=== PATIENT | female | born 1975 | race Caucasian/White ===

== ENCOUNTER 2019-06-10 12:36 | Emergency (ER) | payer OTHER, SELFPAY ==
[2019-06-10 12:55] VITALS: BP 121/70; PULSE 71; RESP 18; TEMP 36.7; O2SAT 99
--- NOTE | 2019-06-10 13:14 | ED.SKABFB ---
HPI - Skin/Abscess/Foreign Bdy General Chief complaint: Skin/Abscess/Foreign Body Stated complaint: pos staph infection/chin Time Seen by Provider: 06/10/19 13:14 Source: patient Mode of arrival: ambulatory Limitations: no limitations History of Present Illness HPI narrative: Cyn Maldonado is a 44 yo female with a PMH of bipolar disorder who comes to urgent care with rash and lesion on right chin, has been evolving for 1 week- reports low grade fever but afebrile here Related Data Home Medications Medication Instructions Recorded Confirmed lamotrigine 06/10/19 Allergies Allergy/AdvReac Type Severity Reaction Status Date / Time erythromycin base Allergy Mild Nausea and Verified 01/12/18 20:32 Vomiting Review of Systems Review of Systems: Narrative: CONSTITUTIONAL: Denies fever, chills, sweats. EYES: Denies visual changes, redness, discharge. ENT: Denies rhinorrhea, congestion, sore throat, otalgia. CARDIOVASCULAR: Denies chest pain, palpitations, edema. RESPIRATORY: Denies dyspnea, wheezing, cough GASTROINTESTINAL: Denies abdominal pain, nausea, vomiting, diarrhea. GENITOURINARY: Denies dysuria, hematuria, abnormal discharge SKIN: Denies rash or itching. Reddened area of infection and induration right chin NEUROLOGIC: Denies numbness, or focal weakness. PSYCHIATRIC: Denies anxiety or depression. [facility] Family History Family History Other No active medical problems Social History Social History Smoking packs per day: 1 Smoking cigarettes per day: 20.0 Smoking status: Current every day smoker Alcohol intake: current Comments At time of signature, I agree with nursing past medical, surgical, social and family history. There is no relevant family history pertinent to the presenting complaint. Exam Narrative: Exam Narrative: GENERAL: This is a well-nourished, well-developed patient, in no apparent distress. HEAD: normocephalic, atraumatic. EYES: Sclera clear/white. Vision is grossly intact. EARS: External ears normal, . Hearing grossly intact. NOSE: External nose normal with no obvious nasal discharge, nares without redness, no rhinorrhea. THROAT: Mucous membranes moist, denies lesions or pain in mouth NECK: Neck supple, non-tender CARDIOVASCULAR: Regular rate and rhythm without murmurs, gallops, or rubs. RESPIRATORY: Clear to auscultation. Breath sounds equal bilaterally. No wheezes, rales, or rhonchi. GASTROINTESTINAL: Abdomen soft, non-tender, SKIN: warm, intact with red indurated rash with yellow discharge on right chin- 3 cm wide NEURO: awake, alert, and oriented to person, place and time. EXTREMITIES: Normal range of motion. No edema. BACK: Nontender without deformity. Course Course Emergency Course: Started on Bactrim Work excuse through tomorrow Vital Signs Vital signs: Vital Signs Temperature 98.0 F 06/10/19 12:55 Pulse Rate 71 06/10/19 12:55 Respiratory Rate 18 06/10/19 12:55 Blood Pressure 121/70 06/10/19 12:55 Pulse Oximetry 99 06/10/19 12:55 Temperature 98.0 F 06/10/19 12:55 Pulse Rate 71 06/10/19 12:55 Respiratory Rate 18 06/10/19 12:55 Blood Pressure 121/70 06/10/19 12:55 Pulse Oximetry 99 06/10/19 12:55 MDM - Skin/Abscess/Foreign Bdy Differential Diagnosis Differential diagnosis: Likely abscess of skin or subcutaneous tissue, cellulitis, contact dermatitis and other Discharge Plan Discharge Clinical Impression: Cellulitis Qualifiers: Site of cellulitis: face Qualified Code(s): L03.211 - Cellulitis of face Patient Disposition: Home, Self-Care Condition: Stable Instructions: Antibiotic Form, Cellulitis (DC) Prescriptions: New cephalexin 500 mg capsule 500 mg PO Q8H Qty: 30 RF: 0 No Action lamotrigine 25 mg tablet RF: 0 Follow-up/Referrals: Moe Chawla MD [Primary
== END 2019-06-10 13:26 | disposition home or self-care (01) ==
PROVIDERS: Emergency Provider Nurse Practitioner; PCP Emergency Medicine
DX: L03.211 Cellulitis of face (principal); F17.210 Nicotine dependence, cigarettes, uncomplicated; F31.9 Bipolar disorder, unspecified
CPT/HCPCS: 99213; G0463

== ENCOUNTER 2020-12-07 20:16 | Emergency (ER) | payer BC, SELFPAY ==
--- NOTE | ~2020-12-07 | CT_ITS ---
EXAMINATION: CT abdomen pelvis w con DATE: 12/07/2020 21:50 INDICATION: Epigastric pain. TECHNIQUE: Computed tomography (CT) of the abdomen and pelvis was performed with 100 mL Omnipaque-350 intravenous contrast. Automated exposure control and iterative reconstruction technique were employe d. The dose-length product was 890.03 mGy-cm. COMPARISON: 09/23/2018 FINDINGS: Dense extravasated contrast is seen in the distal left upper arm. No evident contrast Visualized lower chest, abdomen or pelvis. Linear discoid atelectasis/scarring in the right middle lo be. Similar pattern of mosaic attenuation at the lung bases consistent with atelectasis and subsegmen antonio regions of air trapping related to small airway disease. Heart size is normal. No pericardial or pleural effusion. Right liver, decompressed gallbladder, pancreas, spleen, bilateral adrenal glands a nd left kidney are normal. Unchanged 1 mm nonobstructing stone at a lower pole calyx of the right kid markell. No ureteral stones or hydronephrosis. Bladder, anteverted uterus and bilateral adnexa are unrema rkable. Small round likely tubal ligation rings in the region of the left and right broad ligaments. Unchanged pattern of phleboliths in the pelvis. Bowels including the appendix are normal. Small fat-c ontaining umbilical hernia. No free intraperitoneal gas or fluid. No pathologically enlarged abdomina l or pelvic lymphadenopathy. Mild lower thoracic spondylosis. IMPRESSION: 1. No acute intra-abdominal/pelvic process. 2. 1 mm right ureteral stone. 3. Extravasation of injected contrast which is seen in the soft tissues of the left upper arm. Reviewed, dictated and finalized at location A.
[2020-12-07 20:18] VITALS: BP 107/55; PULSE 82; RESP 18; TEMP 36.4; O2SAT 100
[2020-12-07 20:36] LABS: Basophils Absolute Auto 0.1 K/mm3 (0.0-0.1); Basophils Percent Auto 0.5 % (0.2-1.2); Eosinophils Absolute Auto 0.1 K/mm3 (0-0.3); Eosinophils Percent Auto 1.5 % (0-4.4); Hematocrit 43.6 % (37.0-47.0); Hemoglobin 14.7 g/dL (12.0-15.0); Immature Granulocyte Absolute 0.02 K/mm3 (0.00-0.031); Immature Granulocyte Percent A 0.2 % (0-0.5); Lymphocytes Absolute Auto 4.23 K/mm3 (0.9-3.2); Mean Corpuscular HGB Conc 33.7 g/dl (32-36); Mean Corpuscular Hemoglobin 31.1 pg (26-34); Mean Corpuscular Volume 92.2 fl (80-100); Mean Platelet Volume 10.4 fl (7.4-10.4); Monocytes Absolute Auto 0.4 K/mm3 (0.1-0.6); Monocytes Percent Auto 4.2 % (2.6-8.5); Neutrophils Absolute Auto 4.4 K/mm3 (1.3-6.7); Neutrophils Percent Auto 47.6 % (45.5-73.1); Platelet Count Result 177 k/mm3 (150-375); Red Blood Count 4.73 M/mm3 (4.2-5.4); White Blood Count 9.2 K/mm3 (4.5-10.0)
[2020-12-07 20:46] LABS: Alanine Aminotransferase 25 U/L (4-35); Albumin Level 4.7 g/dL (3.5-5.1); Alkaline Phosphatase 60 U/L (38-126); Anion Gap 8 mmol/L (8-16); Aspartate Amino Transferase 39 U/L (14-36); Bilirubin,Total 0.4 mg/dL (0.2-1.3); Blood Urea Nitrogen 18 mg/dL (7-17); Calcium 10.3 mg/dL (8.4-10.2); Carbon Dioxide 29 mmol/L (22-30); Chloride 103 mmol/L (98-107); Estimated CRCL calculation 56 ml/min; Estimated Glomerular Filt Rate 49; Glucose 103 mg/dL (65-110); Lipase 118 U/L (23-300); Potassium 4.6 mmol/L (3.4-5.0); Sodium 140 mmol/L (137-145)
[2020-12-07 21:06] LABS: Add Urine Microscopic? YES; Appearance Urine Cloudy (Clear); Bilirubin Urine Negative (Negative); Blood Urine Negative (Negative); Color Urine Yellow (Yellow); Glucose Urine UA Negative (Negative); Ketones Urine Negative (Negative); Leukocyte Esterase Ur Negative LEU/UL (Negative); Mucus Urine Rare /lpf; Nitrate Urine Negative (Negative); Protein Urine Negative (Negative); Specific Grav Ur 1.024 (1.001-1.035); Squamous Epithelial Cell Urine Moderate /hpf (Few)
[2020-12-07] MEDS: MORPHINE SULFATE (*CRX) 4 MG/ML INJ IV PUSH (21:48)
[2020-12-07] MEDS: ONDANSETRON INJ 4 MG/2 ML VIAL IV PUSH (21:48)
[2020-12-07] MEDS: SODIUM CHLORIDE 0.9% IV 1,000 ML 999 ML IV CONT (21:48)
--- NOTE | 2020-12-07 22:42 | ED.GENADULT ---
HPI - General Adult General Chief complaint: Abdominal Pain Stated complaint: abd pain Time Seen by Provider: 12/07/20 21:03 History of Present Illness HPI narrative: Patient is a 45-year-old female who presents ER with epigastric abdominal pain. Began yesterday. Worsens with eating. Reports its bloating and uncomfortable. Is alleviated yesterday with vomiting. Patient reports one loose stool related to this. Pain did radiate to the left side. No urinary frequency urgency or dysuria. No known sick contacts. Has not had similar symptoms. Patient has been taking Tums with gas relief. This is not helped. Related Data Home Medications Medication Instructions Recorded Confirmed lamotrigine 06/10/19 Allergies Allergy/AdvReac Type Severity Reaction Status Date / Time erythromycin base Allergy Mild Nausea and Verified 12/07/20 20:24 Vomiting Review of Systems Review of Systems: All systems reviewed & are unremarkable except as noted in HPI and below Constitutional: Constitutional: Denies chills, Reports fatigue and Denies fever(s) ENT: Denies nasal congestion and Denies sore throat Cardiovascular: Cardiovascular: Denies chest pain, Denies rapid heart rate and Denies radiating jaw, neck or arm pain Respiratory: Respiratory: Denies cough and Denies dyspnea Gastrointestinal: Gastrointestinal: Reports abdominal pain, Reports bloating, Reports diarrhea, Reports nausea and Reports vomiting Genitourinary: Genitourinary: Denies nocturia and Denies dysuria PMFSH Past Medical History Medical History (Updated 12/07/20 @ 23:59 by Honorio Short MD) Bipolar 1 disorder Surgical History Surgical History (Updated 12/07/20 @ 22:49 by Honorio Short MD) History of tonsillectomy Family History Family History Other No active medical problems Social History Social History Smoking packs per day: 1 Smoking cigarettes per day: 20.0 Smoking status: Current every day smoker Alcohol intake: current Exam Narrative: GENERAL: Well-appearing, well-nourished, and in no acute distress. HEAD: Normocephalic, atraumatic. CHEST: Clear to auscultation. No respiratory distress. HEART: Regular rate and rhythm. Normal peripheral pulses. ABDOMEN: Soft, mild epigastric tenderness without guarding, nondistended. EXTREMITIES: Normal range of motion. No edema. SKIN: Warm, dry, no rash. NEURO: Alert and oriented x3. PSYCH: Normal mood and affect. Course Course Emergency Course: Feels well. Informed results. Patient may have gallstones that cannot be seen on CT. Recommend low-fat diet and follow-up with PCP for outpatient ultrasound. Patient verbalized understanding of treatment plan. Vital Signs Vital signs: Vital Signs Temperature 97.6 F 12/07/20 20:18 Pulse Rate 82 12/07/20 20:18 Respiratory Rate 18 12/07/20 20:18 Blood Pressure 107/55 L 12/07/20 20:18 Pulse Oximetry 100 12/07/20 20:18 Temperature 97.6 F 12/07/20 20:18 Pulse Rate 78 12/07/20 23:38 Respiratory Rate 18 12/07/20 23:38 Blood Pressure 101/59 L 12/07/20 23:48 Pulse Oximetry 98 12/07/20 23:38 Medical Decision Making Vital Signs Vital Signs: Vital Signs Temperature 97.6 F 12/07/20 20:18 Pulse Rate 82 12/07/20 20:18 Respiratory Rate 18 12/07/20 20:18 Blood Pressure 107/55 L 12/07/20 20:18 Pulse Oximetry 100 12/07/20 20:18 Temperature 97.6 F 12/07/20 20:18 Pulse Rate 78 12/07/20 23:38 Respiratory Rate 18 12/07/20 23:38 Blood Pressure 101/59 L 12/07/20 23:48 Pulse Oximetry 98 12/07/20 23:38 Lab Data Result diagrams: 12/07/20 20:29 12/07/20 20:29 Labs: Lab Results 12/07/20 12/07/20 12/07/20 Range/Units 20:29 20:29 20:53 WBC 9.2 (4.5-10.0) K/mm3 RBC 4.73 (4.2-5.4) M/mm3 Hgb 14.7 (12.0-15.0) g/dL Hc
--- NOTE | 2020-12-07 23:32 | PC.NURSE ---
Assumed care of pt at this time, report taken from Radha MARVIN. Upon entering room, pt sleeping on stretcher. Pt alert and upright on stretcher upon waking pt up. No request at this time. Pt denies pain. Pt updated on POC.
[2020-12-07 23:38] VITALS: BP 95/65; PULSE 78; RESP 18; O2SAT 98
[2020-12-07 23:48] VITALS: BP 101/59
== END 2020-12-08 00:22 | disposition home or self-care (01) ==
PROVIDERS: Emergency Medicine; Emergency Provider Emergency Medicine; PCP Family Medicine
DX: R10.13 Epigastric pain (principal); N20.0 Calculus of kidney
CPT/HCPCS: 36415; 74177; 80053; 81001; 81025; 83690; 85025; 87077; 87086; 87088; 96361; 96374; 96375; 99284; J2270; J2405; J7030; Q9967

== ENCOUNTER 2021-05-23 12:12 | Emergency (ER) | payer BC, SELFPAY ==
[2021-05-23 12:19] VITALS: BP 107/66; PULSE 89; RESP 16; TEMP 37.3; O2SAT 99
--- NOTE | 2021-05-23 12:32 | ED.URI ---
HPI - URI/Sore Throat General Chief Complaint: Upper Respiratory Infection Stated Complaint: fever/body aches/sob Time Seen by Provider: 05/23/21 12:32 Source: patient Mode of arrival: ambulatory Limitations: no limitations History of Present Illness HPI Narrative: 46 yo F presents with c/o fatigue, chills, bodyaches, headache, fever for 2 days. Did a home covid test and it was positive. Her work will not accept it and they want a test and note done at an . Pt denies CP, SOB. Not vaccinated. All systems reviewed and negative except as noted above. Related Data Home Medications Medication Instructions Recorded Confirmed No Home Medications 05/23/21 05/23/21 Allergies Allergy/AdvReac Type Severity Reaction Status Date / Time erythromycin base Allergy Mild Nausea and Verified 12/07/20 20:24 Vomiting Review of Systems Review of Systems: CONSTITUTIONAL: Reports fever, chills, or sweats. EYES: Denies visual changes, redness, or discharge. ENT: Denies rhinorrhea, congestion, sore throat, or otalgia. CARDIOVASCULAR: Denies chest pain, palpitations, or edema. RESPIRATORY: Denies cough or dyspnea. GASTROINTESTINAL: Denies abdominal pain, nausea, vomiting, or diarrhea. GENITOURINARY: Denies dysuria or hematuria. SKIN: Denies rash or itching. MUSCULOSKELETAL: Denies back pain, joint pain. Reports myalgia. NEUROLOGIC: Reports headache denies numbness, or weakness. PSYCHIATRIC: Denies anxiety or depression. All other systems reviewed are negative, except as documented in HPI. [facility] Past Medical History Medical History (Updated 05/23/21 @ 12:43 by Citlali Dominguez NP) Bipolar 1 disorder Surgical History Surgical History (Updated 12/07/20 @ 22:49 by Honorio Short MD) History of tonsillectomy Family History Family History Other No active medical problems Social History Social History Smoking packs per day: 1 Smoking cigarettes per day: 20.0 Smoking status: Current every day smoker Alcohol intake: current Comments At time of signature, agree with nursing past medical, surgical, social and family history. There is no relevant family history pertinent to the presenting complaint. Exam Narrative: GENERAL: This is a well-nourished, well-developed patient. Patient is ill-appearing but in no distress. HEAD: normocephalic, atraumatic. EYES: PERRL. Sclera clear/white. Vision is grossly intact. EARS: External ears normal, auditory canals clear and without drainage, TMs normal without perforation. Hearing grossly intact. NOSE: External nose normal with no obvious nasal discharge, nares without redness, no rhinorrhea. THROAT: Mucous membranes moist, posterior pharynx clear. NECK: Neck supple, non-tender without lymphadenopathy, masses or thyromegaly. CARDIOVASCULAR: Regular rate and rhythm without murmurs, gallops, or rubs. RESPIRATORY: Clear to auscultation. Breath sounds equal bilaterally. No wheezes, rales, or rhonchi. GASTROINTESTINAL: Abdomen soft, non-tender, nondistended. Bowel sounds are active. No hepato-splenomegaly, or palpable masses. No guarding. SKIN: warm, Dry, intact with no suspicious lesions or rash, good texture and turgor. NEURO: awake, alert, and oriented to person, place and time. There were no obvious focal neurologic abnormalities. EXTREMITIES: No joint tenderness, effusion, or edema noted. No calf tenderness. Negative Homans sign bilaterally. BACK: Nontender without deformity. No CVA tenderness. Course Course Level of Care: Express Care Visit Vital Signs Vital signs: Vital Signs Temperature 37.3 C 05/23/21 12:19 Pulse Rate 89 05/23/21 12:19 Respiratory Rate 16 05/23/21 12:19 Blood Pressure 107/66 05/23/21 12:19 Pulse Oximetry 99 05/23/21 12:19 Temperature 37.3 C 05/23/21 12:19 Pulse Rate 89 05/23/21 12:19 Respiratory Rate 16
== END 2021-05-23 12:50 | disposition home or self-care (01) ==
PROVIDERS: Emergency Provider Nurse Practitioner Family
DX: U07.1 COVID-19 (principal); F17.210 Nicotine dependence, cigarettes, uncomplicated
CPT/HCPCS: 87426; 99213; C9803; G0463

== ENCOUNTER 2021-09-12 14:48 | Emergency (ER) | payer BC, SELFPAY ==
[2021-09-12 14:59] VITALS: BP 113/76; PULSE 97; RESP 16; TEMP 37.4; O2SAT 100
--- NOTE | 2021-09-12 15:00 | ED.URI ---
HPI - URI/Sore Throat General Chief Complaint: Upper Respiratory Infection Stated Complaint: sore throat Time Seen by Provider: 09/12/21 15:00 Source: patient Mode of arrival: ambulatory Limitations: no limitations History of Present Illness HPI Narrative: 46 yo F presents with c/o sore throat, neck pain, bodyaches, fever for 2 days. Also reports painful lesion to chin. Denies congestion, cough. No N/v/d. Taking ibuprofen and tylenol with only a little relief of sore throat. All systems reviewed and negative except as noted above. Related Data Allergies Allergy/AdvReac Type Severity Reaction Status Date / Time erythromycin base Allergy Mild Nausea and Verified 09/12/21 14:53 Vomiting Review of Systems Review of Systems: CONSTITUTIONAL: Reports fever, chills and sweats. EYES: Denies visual changes, redness, or discharge. ENT: Denies rhinorrhea, congestion. Reports sore throat. Denies otalgia. CARDIOVASCULAR: Denies chest pain, palpitations, or edema. RESPIRATORY: Denies cough or dyspnea. GASTROINTESTINAL: Denies abdominal pain, nausea, vomiting, or diarrhea. GENITOURINARY: Denies dysuria or hematuria. SKIN: Denies rash or itching. MUSCULOSKELETAL: Denies back pain, joint pain, or myalgia. NEUROLOGIC: Reports headache. Denies numbness, or weakness. PSYCHIATRIC: Denies anxiety or depression. All other systems reviewed are negative, except as documented in HPI. [facility] Past Medical History Medical History (Updated 09/12/21 @ 15:35 by Citlali Dominguez NP) Bipolar 1 disorder Surgical History Surgical History (Updated 12/07/20 @ 22:49 by Honorio Short MD) History of tonsillectomy Family History Family History Other No active medical problems Social History Social History Smoking packs per day: 1 Smoking cigarettes per day: 20.0 Smoking status: Current every day smoker Alcohol intake: current Comments At time of signature, agree with nursing past medical, surgical, social and family history. There is no relevant family history pertinent to the presenting complaint. Exam Narrative: GENERAL: This is a well-nourished, well-developed patient, in no apparent distress. HEAD: normocephalic, atraumatic. EYES: PERRL. Sclera clear/white. Vision is grossly intact. EARS: External ears normal, auditory canals clear and without drainage, TMs normal without perforation. Hearing grossly intact. NOSE: External nose normal with no obvious nasal discharge, nares without redness, no rhinorrhea. THROAT: Mucous membranes moist, erythema and swelling to posterior pharynx. NECK: Neck supple, non-tender without lymphadenopathy, masses or thyromegaly. CARDIOVASCULAR: Regular rate and rhythm without murmurs, gallops, or rubs. RESPIRATORY: Clear to auscultation. Breath sounds equal bilaterally. No wheezes, rales, or rhonchi. SKIN: warm, Dry, intact with no suspicious rash, good texture and turgor. Erythematous lesion with swelling to chin with yellow crusting. NEURO: awake, alert, and oriented to person, place and time. There were no obvious focal neurologic abnormalities. EXTREMITIES: No joint tenderness, effusion, or edema noted. Course Course Level of Care: Express Care Visit Vital Signs Vital signs: Vital Signs Temperature 37.4 C 09/12/21 14:59 Pulse Rate 97 09/12/21 14:59 Respiratory Rate 16 09/12/21 14:59 Blood Pressure 113/76 09/12/21 14:59 Pulse Oximetry 100 09/12/21 14:59 Oxygen Delivery Room Air 09/12/21 14:59 Temperature 37.4 C 09/12/21 14:59 Pulse Rate 97 09/12/21 14:59 Respiratory Rate 16 09/12/21 14:59 Blood Pressure 113/76 09/12/21 14:59 Pulse Oximetry 100 09/12/21 14:59 Oxygen Delivery Room Air 09/12/21 14:59 Reviewed MDM - URI/Sore Throat MDM Narrative Medical decision making narrative: Patient is aware of diagnosis, understand
== END 2021-09-12 15:15 | disposition home or self-care (01) ==
PROVIDERS: Emergency Provider Nurse Practitioner Family
DX: J02.9 Acute pharyngitis, unspecified (principal); L01.00 Impetigo, unspecified; Z20.822 Contact with and (suspected) exposure to COVID-19; F17.210 Nicotine dependence, cigarettes, uncomplicated
CPT/HCPCS: 87081; 87426; 87804; 87880; 99213; C9803; G0463

== ENCOUNTER 2022-03-16 09:48 | Emergency (ER) | payer BC, SELFPAY ==
[2022-03-16 10:30] VITALS: BP 111/75; PULSE 89; RESP 12; TEMP 37.2; O2SAT 98
--- NOTE | 2022-03-16 11:43 | ED.GENADULT ---
HPI - General Adult General Chief complaint: Upper Respiratory Infection Stated complaint: cough/ear pain/ sore throat Time Seen by Provider: 03/16/22 11:43 Source: patient Mode of arrival: ambulatory Limitations: no limitations History of Present Illness HPI narrative: 46-year-old female patient presents to the [facility] with complaints of cold symptoms for the past 2 days. Patient states she has had runny nose, congestion, watery and itchy eyes, bilateral ear pain, sore throat, cough, chills. Patient states she has also had a rash that came up yesterday on her chin that she wanted to get checked out. Patient states the rash is painful and slightly itchy. Related Data Allergies Allergy/AdvReac Type Severity Reaction Status Date / Time erythromycin base Allergy Mild Nausea and Verified 03/16/22 10:38 Vomiting Review of Systems Review of Systems: CONSTITUTIONAL: Denies fever, positive chills, denies sweats. EYES: Denies visual changes, redness, or discharge. Positive bilateral watery itchy eyes ENT: Positive rhinorrhea, congestion, sore throat, and bilateral otalgia. CARDIOVASCULAR: Denies chest pain, palpitations, or edema. RESPIRATORY: Positive cough denies dyspnea. GASTROINTESTINAL: Denies abdominal pain, nausea, vomiting, or diarrhea. GENITOURINARY: Denies dysuria or hematuria. SKIN: Positive rash with pain in itching to Thatch. MUSCULOSKELETAL: Denies back pain, joint pain, or myalgia. NEUROLOGIC: Denies headache, numbness, or weakness. PSYCHIATRIC: Denies anxiety or depression. [facility] Past Medical History Medical History Ankle fracture Bipolar 1 disorder Bronchitis Clavicle fracture Degenerative disc disease Surgical History Surgical History H/O tubal ligation History of tonsillectomy Family History Family History Other No active medical problems Social History Social History Smoking packs per day: 1 Smoking cigarettes per day: 20.0 Smoking status: Current every day smoker Alcohol intake: current Comments At the time of my signature I agree with nursing past medical history, surgical, social, and family history. There is no relevant family history pertinent to the presenting complaint. Exam Narrative: GENERAL: Well-appearing, well-nourished, and in no acute distress. HEAD: Normocephalic, atraumatic. EYES: PERRLA and EOMI. ENT: Nares with erythema edema noted bilaterally, no rhinorrhea or epistaxis. Mucous membranes moist. Posterior pharynx with no erythema, tonsillar enlargement, exudates or lesions present. Bilateral TMs are clear no erythema or foreign bodies the canal. NECK: Supple. No lymphadenopathy CHEST: Clear to auscultation. No respiratory distress. HEART: Regular rate and rhythm. No murmur heard. Normal peripheral pulses. ABDOMEN: Soft, nontender, nondistended, normal active bowel sounds. EXTREMITIES: Normal range of motion. No edema. SKIN: Warm, dry, patient has a blistery rash noted to the right side of the Thatch under the lower lip. There are about 3 areas biggest 1 measuring about 0.25 cm. NEURO: No focal deficits. Alert and oriented x3. Course Course Level of Care: Express Care Visit Reevaluation(s) Reevaluation #1: Re-evaluated patient and notified her that she is negative for COVID and influenza today. Discussed with patient that she does have some kind of virus we just do not know which 1 it is. Discussed with patient to treat her symptoms symptomatically. Discussed with the patient that we can go ahead and give her some Flonase and an antihistamine to help with the ear pain and help drain for any fluid away that might be in there. Discussed with patient we will give her the antiviral for the shingles outbreak on the chin. Otherwise she needs lo
== END 2022-03-16 12:38 | disposition home or self-care (01) ==
PROVIDERS: Emergency Provider Nurse Practitioner Family; PCP Family Medicine
DX: B02.9 Zoster without complications (principal); J06.9 Acute upper respiratory infection, unspecified; Z20.822 Contact with and (suspected) exposure to COVID-19; F17.210 Nicotine dependence, cigarettes, uncomplicated
CPT/HCPCS: 87426; 87804; 99213; C9803; G0463

== ENCOUNTER 2022-05-16 17:41 | Emergency (ER) | payer BC, SELFPAY ==
[2022-05-16 17:47] VITALS: BP 108/67; PULSE 84; RESP 16; TEMP 36.6; O2SAT 100
--- NOTE | 2022-05-16 18:27 | ED.URI ---
HPI - URI/Sore Throat General Chief Complaint: Upper Respiratory Infection Stated Complaint: sore throat Time Seen by Provider: 05/16/22 18:25 Source: patient Mode of arrival: ambulatory Limitations: no limitations History of Present Illness HPI Narrative: patient is a 46-year-old female presenting throat burning for 1 week. patient also reports bad breath and concern for oral thrush. Patient smokes half pack a day Related Data Allergies Allergy/AdvReac Type Severity Reaction Status Date / Time erythromycin base Allergy Mild Nausea and Verified 05/16/22 18:13 Vomiting Review of Systems Review of Systems: CONSTITUTIONAL: Denies malaise, chills, sweats, or fever.? EYES: Denies visual changes, redness, or discharge.? ENT: denies rhinorrhea, congestion, sinus pain, otalgia and reports burning sore throat.? CARDIOVASCULAR: Denies chest pain, palpitations, or edema.? RESPIRATORY: denies cough.? Denies dyspnea.? GASTROINTESTINAL: Denies abdominal pain, nausea, vomiting, diarrhea? SKIN: Denies rash or itching.? MUSCULOSKELETAL: Denies myalgia.? NEUROLOGIC: Denies headache All systems reviewed & are unremarkable except as noted in HPI and below PMFSH Past Medical History Medical History Ankle fracture Bipolar 1 disorder Bronchitis Clavicle fracture Degenerative disc disease Surgical History Surgical History H/O tubal ligation History of tonsillectomy Family History Family History Other No active medical problems Social History Social History Smoking packs per day: 1 Smoking cigarettes per day: 20.0 Smoking status: Current every day smoker Alcohol intake: current Comments At time of signature, agree with nursing past medical, surgical, social and family history. There is no relevant family history pertinent to the presenting complaint? Exam Narrative: GENERAL: Well-appearing, well-nourished, and in no acute distress.? HEAD: Normocephalic, atraumatic.? EYES: PERRLA, conjunctivae clear, and EOMI. No nystagmus.? ENT: Nares clear, turbinates pink, no rhinorrhea or epistaxis. Mucous membranes moist. TM pearly bustillo with sharp light reflex bilaterally; no tragal tenderness. Oropharynx without erythema or lesions. Tonsils not enlarged and without exudate.? inflamed cervical circumvalate papille without erythema NECK: Supple. No lymphadenopathy. CHEST: No respiratory distress. Clear to auscultation.? No bony deformities, no asymmetry. Speaks in full sentences.? HEART: Regular rate and rhythm. No murmur heard. ? ABDOMEN: Soft, nontender, nondistended EXTREMITIES: Normal range of motion. No edema. ? SKIN: Warm, dry, no rash.? NEURO: Alert and oriented x3. No focal deficits. PSYCH: Normal mood and affect? Course Course Emergency Course: Patient is aware of diagnosis, understands and agrees to treatment plan.? Anticipatory guidance given.? Patient agrees to follow-up as directed and is aware of reasons to seek care at the emergency department.? Portions of this record may have been created with voice recognition software? Level of Care: Express Care Visit Vital Signs Vital signs: Vital Signs Temperature 36.6 C 05/16/22 17:47 Pulse Rate 84 05/16/22 17:47 Respiratory Rate 16 05/16/22 17:47 Blood Pressure 108/67 05/16/22 17:47 Pulse Oximetry 100 05/16/22 17:47 Oxygen Delivery Room Air 05/16/22 17:47 Temperature 36.6 C 05/16/22 17:47 Pulse Rate 84 05/16/22 17:47 Respiratory Rate 16 05/16/22 17:47 Blood Pressure 108/67 05/16/22 17:47 Pulse Oximetry 100 05/16/22 17:47 Oxygen Delivery Room Air 05/16/22 17:47 Reviewed MDM - URI/Sore Throat MDM Narrative Medical decision making narrative: Differential diagnosis considered: Hernandez virus, strep pha
== END 2022-05-16 18:57 | disposition home or self-care (01) ==
PROVIDERS: Emergency Provider Nurse Practitioner Family; PCP Family Medicine
DX: J02.9 Acute pharyngitis, unspecified (principal); F17.210 Nicotine dependence, cigarettes, uncomplicated
CPT/HCPCS: 87081; 87880; 99213; G0463

== ENCOUNTER 2022-05-26 09:24 | Emergency (ER) | payer BC, SELFPAY ==
--- NOTE | ~2022-05-26 | XR_ITS ---
EXAMINATION: XR chest 2V DATE: 05/26/2022 09:46 INDICATION: Difficulty breathing and nonproductive cough TECHNIQUE: PA and lateral views of the chest were obtained. COMPARISON: Chest radiograph dated 10/29/2006 FINDINGS: The lungs are clear with no focal airspace opacities, pulmonary edema, pleural effusion or pneumothor ax. The cardiomediastinal silhouette is normal. Visualized bones and soft tissues are unremarkable. IMPRESSION: 1. No acute cardiopulmonary disease. Reviewed, dictated and finalized at location A.
--- NOTE | 2022-05-26 09:26 | ED.URI ---
HPI - URI/Sore Throat General Chief Complaint: Upper Respiratory Infection Stated Complaint: uri Time Seen by Provider: 05/26/22 09:25 Source: patient Mode of arrival: ambulatory Limitations: no limitations History of Present Illness HPI Narrative: Cyn is a 47-year-old female patient presenting to the clinic today with complaints of headache, sore throat, ear discomfort, nasal congestion, intermittent shortness of breath, body aches, chills, and feeling feverish. She reports her cough is nonproductive. She is concerned that she may have COVID. She denies any known exposure to anyone with COVID, flu, or strep MD elicited complaint: fever, cough, sore throat, rhinorrhea, nasal congestion and other (Headache, ear pain) Related Data Allergies Allergy/AdvReac Type Severity Reaction Status Date / Time erythromycin base Allergy Mild Nausea and Verified 05/26/22 09:49 Vomiting Review of Systems Review of Systems: Pertinent positives per HPI. Patient denies any rash, visual changes, dizziness, chest pain, palpitations, nausea, vomiting, diarrhea, constipation, abdominal pain, or any urinary issues. PMFSH Past Medical History Medical History Ankle fracture Bipolar 1 disorder Bronchitis Clavicle fracture Degenerative disc disease Surgical History Surgical History H/O tubal ligation History of tonsillectomy Family History Family History Other No active medical problems Social History Social History Smoking packs per day: 1 Smoking cigarettes per day: 20.0 Smoking status: Current every day smoker Alcohol intake: current Comments At the time of my signature, I reviewed and agree with the nursing past medical, surgical, social, and family history. There is no relevant family history pertinent to the patient complaint. Exam Narrative: General: Well-developed, well nourished, in no apparent distress Head: Normocephalic, atraumatic Eyes: Pupils equally round and reactive to light bilaterally, EOM intact, sclera and conjunctive clear, no discharge, lids normal Ears: TMs intact and congested ear canals clear, no drainage, grossly hearing normal. Nose: Nares patent, clear nasal discharge, moderate inflammation, no sinus tenderness. Mouth: Oral pharynx without lesions or masses, good dentition, MMM. Postnasal drip, oropharynx red Neck: Supple, trachea midline, no enlargement of anterior or posterior cervical nodes, no thyroid masses or goiter palpable. Cardio: Regular rate and rhythm, s1 and s2 normal, no murmur appreciated. Resp: Faint crackles heard in the right lower posterior base otherwise clear, no rhonchi, rales, wheezing or rubs Course Course Emergency Course: Portions of this record may have been created with voice recognition software. Level of Care: Express Care Visit Vital Signs Vital signs: Vital Signs Temperature 37.7 C H 05/26/22 09:32 Pulse Rate 111 H 05/26/22 09:32 Respiratory Rate 16 05/26/22 09:32 Blood Pressure 99/67 L 05/26/22 09:32 Pulse Oximetry 95 05/26/22 09:32 Oxygen Delivery Room Air 05/26/22 09:32 Temperature 37.7 C H 05/26/22 09:32 Pulse Rate 111 H 05/26/22 09:32 Respiratory Rate 16 05/26/22 09:32 Blood Pressure 99/67 L 05/26/22 09:32 Pulse Oximetry 95 05/26/22 09:32 Oxygen Delivery Room Air 05/26/22 09:32 Vital signs reviewed MDM - URI/Sore Throat MDM Narrative Medical decision making narrative: At the time of visit patient is resting comfortably on the exam table. COVID, flu, and strep test were all negative in the clinic today. We will send strep for culture. Chest x-ray was performed and was negative for any sign of pneumonia. I suspect patient has URI/pharyngitis/viral syn
[2022-05-26 09:32] VITALS: BP 99/67; PULSE 111; RESP 16; TEMP 37.7; O2SAT 95
== END 2022-05-26 10:22 | disposition home or self-care (01) ==
PROVIDERS: Emergency Provider Nurse Practitioner Family; PCP Family Medicine
DX: J02.8 Acute pharyngitis due to other specified organisms (principal); F17.210 Nicotine dependence, cigarettes, uncomplicated; Z20.822 Contact with and (suspected) exposure to COVID-19
CPT/HCPCS: 71046; 87081; 87426; 87804; 87880; 99213; C9803; G0463

== ENCOUNTER 2022-08-21 07:06 | Emergency (ER) | payer BC, SELFPAY ==
[2022-08-21 07:09] VITALS: BP 125/83; PULSE 87; RESP 16; O2SAT 100
[2022-08-21 07:43] LABS: Basophils Percent Auto 0.6 % (0.2-1.2); Eosinophils Absolute Auto 0.2 K/mm3 (0-0.3); Eosinophils Percent Auto 2.6 % (0-4.4); Hemoglobin 15.5 g/dL (12.0-15.0); Immature Granulocyte Absolute 0.02 K/mm3 (0.00-0.031); Immature Granulocyte Percent A 0.3 % (0-0.5); Lymphocytes Absolute Auto 3.03 K/mm3 (0.9-3.2); Lymphocytes Percent Auto 43.9 % (18.3-44.2); Mean Platelet Volume 12.1 fl (7.4-10.4); Monocytes Absolute Auto 0.4 K/mm3 (0.1-0.6); Monocytes Percent Auto 5.1 % (2.6-8.5); Neutrophils Absolute Auto 3.3 K/mm3 (1.3-6.7); Neutrophils Percent Auto 47.5 % (45.5-73.1); Platelet Count Result 174 k/mm3 (150-375); Red Cell Distribution Width 12.7 % (11.5-14.5); White Blood Count 6.9 K/mm3 (4.5-10.0)
[2022-08-21 07:56] LABS: Alanine Aminotransferase 17 U/L (6-35); Albumin Level 4.2 g/dL (3.5-5.1); Alkaline Phosphatase 40 U/L (38-126); Anion Gap 6 mmol/L (8-16); Aspartate Amino Transferase 21 U/L (14-36); Bilirubin,Total 0.6 mg/dL (0.2-1.3); Blood Urea Nitrogen 14 mg/dL (7-17); Calcium 8.9 mg/dL (8.4-10.2); Carbon Dioxide 25 mmol/L (22-30); Chloride 108 mmol/L (98-107); Estimated CRCL calculation 81 ml/min; Estimated Glomerular Filt Rate > 60; Glucose 98 mg/dL (65-110); Potassium 4.9 mmol/L (3.4-5.0); Sodium 139 mmol/L (137-145)
[2022-08-21 09:27] LABS: Monoscreen Negative (Negative); Negative Monotest Control Negative (Negative); Positive Monotest Control Positive (Positive)
--- NOTE | 2022-08-21 09:30 | ED.GENADULT ---
HPI - General Adult General Chief complaint: Unspecified Stated complaint: sore throat Time Seen by Provider: 08/21/22 07:13 Source: patient Mode of arrival: ambulatory Limitations: no limitations History of Present Illness HPI narrative: 47-year-old otherwise healthy here with complaints of sore throat on and off since the last few months. Patient states that she developed shingles on her face she was on medication for that however since last few months she gets intermittent pain in her throat from midway tongue to all the way to her throat.. Patient states that she was at work this morning all of a sudden she developed pain and felt lightheaded. She denies any chest pain or shortness of breath. No history of fever or chills. Onset (ago): week(s) Location: mouth Radiation: non-radiation Severity: mild Pain Consistency: intermittent Relieving factors: none Exacerbating factors: none Associated symptoms: denies other symptoms Related Data Allergies Allergy/AdvReac Type Severity Reaction Status Date / Time erythromycin base Allergy Mild Nausea and Verified 08/21/22 07:11 Vomiting Review of Systems Review of Systems: All systems reviewed & are unremarkable except as noted in HPI and below Constitutional: Constitutional: Reports no additional constitutional complaints Eyes: Eyes: Reports no additional eye complaints ENT: Reports system reviewed and no additional complaints, except as documented Cardiovascular: Cardiovascular: Reports no additional cardiovascular complaints Respiratory: Respiratory: Reports no additional respiratory complaints Gastrointestinal: Gastrointestinal: Reports no additional gastrointestinal complaints PMFSH Past Medical History Medical History Ankle fracture Bipolar 1 disorder Bronchitis Clavicle fracture Degenerative disc disease Surgical History Surgical History H/O tubal ligation History of tonsillectomy Family History Family History Other No active medical problems Social History Social History Smoking packs per day: 1 Smoking cigarettes per day: 20.0 Smoking status: Current every day smoker Alcohol intake: current Exam Narrative: GENERAL: Well-appearing, well-nourished, and in no acute distress. HEAD: Normocephalic, atraumatic. EYES: PERRLA and EOMI. ENT: Nares clear, no rhinorrhea or epistaxis. Mucous membranes moist. NECK: Supple. CHEST: Clear to auscultation. No respiratory distress. HEART: Regular rate and rhythm. No murmur heard. Normal peripheral pulses EXTREMITIES: Normal range of motion. No edema. SKIN: Warm, dry, no rash. NEURO: No focal deficits. Alert and oriented x3. PSYCH: Normal mood and affect. Course Course Emergency Course: Notified patient about her lab work. Recommended her to follow-up with the ENT. Cause of her pain is unknown at this time. Vital Signs Vital signs: Vital Signs Pulse Rate 87 08/21/22 07:09 Respiratory Rate 16 08/21/22 07:09 Blood Pressure 125/83 08/21/22 07:09 Pulse Oximetry 100 08/21/22 07:09 Pulse Rate 87 08/21/22 07:09 Respiratory Rate 16 08/21/22 07:09 Blood Pressure 125/83 08/21/22 07:09 Pulse Oximetry 100 08/21/22 07:09 Medical Decision Making [facility] Narrative Medical decision making narrative: 47-year-old with ongoing sore throat and lightheadedness and dizziness her physical exam is unremarkable we will do EKG, check labs. Differential Diagnosis Differential Diagnosis: Neuropathic pain, mononucleosis Medical Records Medical records reviewed: Yes I reviewed the external patient's medical records. Vital Signs Vital Signs: Vital Signs Pulse Rate 87 08/21/22 07:09 Respiratory Rate 16 08/21/22 07:09 Blood Pressure 125/83 06/07
--- NOTE | 2022-08-21 09:35 | ECG_ITS ---
Measurements Intervals [place] Rate: 61 P: 42 MD: 145 QRS: 174 QRSD: 101 T: 46 QT: 428 QTc: 433 Interpretive Statements SINUS RHYTHM WITH SINUS ARRHYTHMIA PATTERN CONSISTENT WITH PULMONARY DISEASE POSSIBLE RIGHT VENTRICULAR HYPERTROPHY [SOME/ALL OF: PROMINENT R IN V1, LATE TRANSITION, RAD, ZACH, SSS] ABNORMAL ECG NO PREVIOUS ECG AVAILABLE FOR COMPARISON Electronically Signed On 08-21-2022 10:21:51 CDT by Leonel Quiroga M.D.
[2022-08-21 09:51] VITALS: BP 126/80; PULSE 84; RESP 16; TEMP 36.8; O2SAT 100
== END 2022-08-21 09:52 | disposition home or self-care (01) ==
PROVIDERS: Emergency Provider Family Medicine; PCP Family Medicine
DX: R42 Dizziness and giddiness (principal); R07.0 Pain in throat; G89.29 Other chronic pain; F17.210 Nicotine dependence, cigarettes, uncomplicated; R94.31 Abnormal electrocardiogram [ECG] [EKG]
CPT/HCPCS: 36415; 80053; 85025; 86308; 93005; 99283

== ENCOUNTER 2022-11-02 13:38 | Inpatient (IN) | payer BC, SELFPAY ==
--- NOTE | ~2022-11-02 | MR_ITS ---
EXAMINATION: MR MRCP wo/w con/w 3D wo ind DATE: 11/03/2022 09:56 INDICATION: Right upper quadrant abdominal pain. Gallbladder distention. TECHNIQUE: Magnetic resonance imaging (MRI) of the abdomen was performed without and with 19 mL Multi Romel intravenous contrast. Sequences included coronal T2-weighted FS FSE, coronal T2-weighted FSE, a xial T1-weighted LAVA, coronal FS FIESTA, axial dual-echo T1-weighted SPGR, coronal lava-FLEX, sagitt al T2-weighted FSE, axial T2-weighted FSE, and axial DWI. Thick-slab T2-weighted FSE images were obta ined for magnetic resonance cholangiopancreatography (MRCP). Maximum intensity projection 3-D reconst ructions of the volumetric data were created by the technologist. Postcontrast sequences included cor onal LAVA-flex and time course of axial T1-weighted LAVA. COMPARISON: CT abdomen and pelvis 11/02/2022 FINDINGS: ABDOMEN MRI: There is mild intrahepatic biliary duct dilatation. There is a 5 mm cyst in the liver. T he gallbladder is distended and contains gallstones. Gallbladder wall thickening is noted. The spleen is normal. 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 The adrenal glands and left kidney are normal. Ther e are cysts in right kidney measuring up to 6 mm. There are no dilated loops of bowel. There are no p athologically enlarged lymph nodes. There is physiologic fluid in the pelvis. ABDOMEN MRCP: The common duct is dilated to 11 mm. There are multiple stones in the common duct measu ring up to 6 mm. IMPRESSION: 1. Choledocholithiasis with intrahepatic and extrahepatic biliary duct dilatation. 2. Acute cholecystitis. Reviewed, dictated and finalized at location A. IMPRESSION: 1. Choledocholithiasis with intrahepatic and extrahepatic biliary duct dilatati on. 2. Acute cholecystitis.
--- NOTE | ~2022-11-02 | XR_ITS ---
EXAMINATION: XR ERCP DATE: 11/05/2022 14:21 INDICATION: Choledocholithiasis TECHNIQUE: Two intraoperative fluoroscopic images obtained during endoscopic retrograde cholangiopanc reatography (ERCP) are submitted for review. Total fluoroscopic time was 91.1 seconds. COMPARISON: None. FINDINGS: Fluoroscopic images demonstrate opacification of a mildly dilated common bile duct. IMPRESSION: 1. Dilated common bile duct. Please refer to the ERCP procedure note for additional details. Reviewed, dictated and finalized at location A. IMPRESSION: 1. Dilated common bile duct. Please refer to the ERCP procedure note for additi onal details.
--- NOTE | ~2022-11-02 | CT_ITS ---
EXAMINATION: CT abdomen pelvis w con INDICATION: Epigastric pain TECHNIQUE: Computed tomographic images of the abdomen and pelvis were obtained after the administrati on of 100 cc of Omnipaque 350 intravenous contrast. The dose-length product (DLP) was 928.18 mGy-cm. Automated exposure control and iterative reconstruction technique were employed. COMPARISON: 12/07/2020 FINDINGS: The lung bases are clear. The heart size is normal. There is mild intrahepatic and extrahep atic biliary dilatation. The gallbladder is mildly distended. There appears to be debris or stones in the common bile duct. The liver, spleen, pancreas, and adrenal glands are normal. The left kidney is unremarkable. Cysts of the right kidney measure up to 8 mm. No pathologically enlarged abdominal or pelvic lymph nodes are identified. No free intraperitoneal gas or evidence of bowel obstruction. Ther e is an umbilical hernia containing fat. The appendix is normal. IMPRESSION: 1. Gallbladder distention with intrahepatic and extrahepatic biliary dilatation and apparent debris o r stones in the common bile duct. Consider correlation with MRCP. Reviewed, dictated and finalized at location F. IMPRESSION: 1. Gallbladder distention with intrahepatic and extrahepatic biliary dilatation and apparent debris or stones in the common bile duct. Consider correlation wi MRCP.
[2022-11-02 13:48] VITALS: BP 137/73; PULSE 93; RESP 18; TEMP 36.6; O2SAT 99
[2022-11-02 14:22] LABS: Basophils Percent Auto 0.5 % (0.2-1.2); Eosinophils Absolute Auto 0.2 K/mm3 (0-0.3); Eosinophils Percent Auto 2.2 % (0-4.4); Hematocrit 45.3 % (37.0-47.0); Hemoglobin 15.1 g/dL (12.0-15.0); Immature Granulocyte Absolute 0.04 K/mm3 (0.00-0.031); Immature Granulocyte Percent A 0.5 % (0-0.5); Lymphocytes Absolute Auto 3.34 K/mm3 (0.9-3.2); Lymphocytes Percent Auto 37.9 % (18.3-44.2); Mean Corpuscular HGB Conc 33.3 g/dl (32-36); Mean Corpuscular Hemoglobin 30.8 pg (26-34); Mean Corpuscular Volume 92.4 fl (80-100); Mean Platelet Volume 10.9 fl (7.4-10.4); Monocytes Absolute Auto 0.5 K/mm3 (0.1-0.6); Neutrophils Absolute Auto 4.7 K/mm3 (1.3-6.7); Neutrophils Percent Auto 52.9 % (45.5-73.1); Platelet Count Result 187 k/mm3 (150-375); Red Cell Distribution Width 12.5 % (11.5-14.5); White Blood Count 8.8 K/mm3 (4.5-10.0)
[2022-11-02 14:34] LABS: Alanine Aminotransferase 297 U/L (6-35); Albumin Level 4.4 g/dL (3.5-5.1); Alkaline Phosphatase 106 U/L (38-126); Anion Gap 8 mmol/L (8-16); Aspartate Amino Transferase 52 U/L (14-36); Bilirubin,Total 0.3 mg/dL (0.2-1.3); Blood Urea Nitrogen 15 mg/dL (7-17); Calcium 9.2 mg/dL (8.4-10.2); Carbon Dioxide 24 mmol/L (22-30); Chloride 108 mmol/L (98-107); Estimated CRCL calculation 81 ml/min; Estimated Glomerular Filt Rate > 60; Glucose 115 mg/dL (65-110); Lipase 112 U/L (23-300); Potassium 4.1 mmol/L (3.4-5.0); Sodium 140 mmol/L (137-145)
[2022-11-02 14:43] LABS: Appearance Urine Clear (Clear); Bilirubin Urine Negative (Negative); Blood Urine Negative (Negative); Color Urine Dark Yellow (Yellow); Glucose Urine UA Negative (Negative); Ketones Urine Trace mg/dL (Negative); Leukocyte Esterase Ur Negative LEU/UL (Negative); Nitrate Urine Negative (Negative); Protein Urine Negative (Negative); Specific Grav Ur 1.032 (1.001-1.035); pH Urine 6.5 (5.0-9.0)
[2022-11-02 14:49] LABS: Add Urine Microscopic? NO
--- NOTE | 2022-11-02 15:11 | ED.ABDPAIN ---
HPI - Abdominal Pain General Chief Complaint: Abdominal Pain Stated Complaint: abd pain Time Seen by Provider: 11/02/22 15:06 Source: patient and family Mode of arrival: ambulatory Limitations: no limitations History of Present Illness HPI narrative: 47 years old white female came to the emergency room by private car with her son complaining of intermittent epigastric pain for over a year. Was seen by her family physician 2 weeks ago and started on omeprazole and famotidine, without improvement, was seen by aircraft maintenance instructor yesterday and was asked to continue the antacid medication. Patient could not sleep last night, because of the pain. History of anxiety and depression. Denies any history of abdominal surgery. Related Data Home Medications Medication Instructions Recorded Confirmed buspirone 10 mg tablet 10 mg PO BID 08/30/22 08/30/22 methylprednisolone 4 mg tablet 4 mg PO DAILY 08/30/22 08/30/22 Allergies Allergy/AdvReac Type Severity Reaction Status Date / Time erythromycin base Allergy Mild Nausea and Verified 11/02/22 15:57 Vomiting Review of Systems Review of Systems: All systems reviewed & are unremarkable except as noted in HPI and below PMFSH Past Medical History Medical History Ankle fracture Bipolar 1 disorder Bronchitis Clavicle fracture Degenerative disc disease Surgical History Surgical History H/O tubal ligation History of tonsillectomy Family History Family History Father Alcoholism Diabetes mellitus Hypertension Depression Heart disease Mother Cancer Depression Other Asthma Depression Grandparent Alcoholism Cancer Diabetes mellitus Hypertension Heart disease Depression Grandparent Depression Other No active medical problems Social History Social History Smoking packs per day: 1 Smoking cigarettes per day: 20.0 Smoking status: Current every day smoker Alcohol intake: current Lack of Transportation: No Lack of Food: Never True Current Housing: I Have Housing Concerned About Future Housing: No Difficulty Paying Gas/Electric Bills: No Difficulty Paying for Meds: No Currently Unemployed: No Education: Trade/Vocational Certificate Difficulty w/ Childcare or Family Care: No Exam Narrative: General appearance: Well-developed, well-nourished, looks in pain Skin: Normal color Head: Normocephalic, nontraumatic Eyes: Clear conjunctiva ENT: Oropharynx normal, ears normal, nose normal Neck: Supple, nontender Chest and respiratory: Airway patent, no respiratory distress, no accessory muscle use Heart: Regular rate/rhythm Abdomen: Severe epigastric tenderness, she and right upper quadrant, positive guarding, quiet bowel sounds Vascular: Normal peripheral pulses, normal capillary refill. Musculoskeletal: Normal range of motion, nontender back Neurologic: Alert and oriented ?3, [employer]UCER is normal as tested, no gross motor deficit Course Reevaluation(s) Reevaluation #1: Still in pain, and requires more Dilaudid and Zofran IV. Date: 11/02/22 Time: 17:18 Consultations Consultation #1: Dr. Arriaza Date: 11/02/22 Time: 17:18 Consultation #2: Dr. Sanz Date: 11/02/22 Time: 17:18 Vital Signs Vital signs: Vital Signs Temperature 36.6 C 11/02/22 13:48 Pulse Rate 93 11/02/22 13:48 Respiratory Rate 18 11/02/22 13:48 Blood Pressure 137/73 11/02/22 13:48 Pulse Oximetry 99 11/02/22 13:48 Temperature 36.6 C 11/02/22
[2022-11-02] MEDS: SODIUM CHLORIDE 0.9% IV 1,000 ML 999 ML IV CONT ×2 (15:36→17:58)
[2022-11-02 15:58] VITALS: BP 124/62; PULSE 62; RESP 20; O2SAT 100
[2022-11-02] MEDS: ONDANSETRON INJ 4 MG/2 ML VIAL 8 MG IV PUSH (15:59)
[2022-11-02] MEDS: HYDROmorphone HCL INJ (*CRX) 1 MG/ML SYR 0.5 MG IV PUSH ×3 (15:59→19:36)
--- NOTE | 2022-11-02 19:00 | PC.NURSE ---
This patient, Cyn Maldonado, was admitted to Medical Room 341-01. Patient/family oriented to hospital policies and general routines including ID bracelet, bed and alarms, visiting hours, pain management, procedures, bathroom and other care routines, personal items, smoking policy, room service/diet, and visiting hours. Information on how to activate the Rapid Response Team has been discussed. Patient/Family are encouraged to report perceived risks to care and to ask questions if they do not understand what they are told or what they should do.
[2022-11-02 19:17] VITALS: BP 123/72; PULSE 83; RESP 18; TEMP 36.5; O2SAT 94
[2022-11-02 19:18] VITALS: BMI 62.8
[2022-11-02] MEDS: SODIUM CHLORIDE 0.9% IV 1,000 ML 150 ML IV CONT (19:33)
[2022-11-02] MEDS: ONDANSETRON INJ 4 MG/2 ML VIAL IV PUSH ×2 (19:36→23:47)
[2022-11-02 20:00] VITALS: O2SAT 94
[2022-11-02 21:09] VITALS: BMI 32.1
--- NOTE | 2022-11-02 21:10 | PM.IMHP ---
H&P: HPI History of Present Illness Date/Time: 11/02/22 21:10 Chief Complaint: Abdominal pain Narrative: This is a 47-year-old female patient who came to the emergency room with complaints of intermittent epigastric pain that has been on and off for over the last year. The patient went to her primary care doctor 2 weeks ago was started on omeprazole and Pepcid she has not had any improvement. She was seen by GI yesterday and was asked to continue her an asset medication. The patient could not sleep last night because of the pain. She denies any history of abdominal surgery. Her ALT is 297 and AST is 52. CT of the abdomen and pelvis was read asGallbladder distention with intrahepatic and extrahepatic biliary dilatation and apparent debris or stones in the common bile duct. Consider correlation with MRCP. The patient was given IV fluids, GI cocktail, Dilaudid, Zofran and IV fluids. Surgery and GI have been consulted. The patient is being admitted to inpatient status on the date of service of 11/02/2022 Review of Systems Review of Systems: All systems reviewed & are unremarkable except as noted in HPI and below Constitutional: Constitutional: Reports as per HPI and Reports no additional constitutional complaints Eyes: Eyes: Reports as per HPI and Reports no additional eye complaints ENT: Reports system reviewed and no additional complaints, except as documented and Reports Normal hearing present Cardiovascular: Cardiovascular: Reports no additional cardiovascular complaints Respiratory: Respiratory: Reports no additional respiratory complaints and Reports no additional respiratory complaints Gastrointestinal: Gastrointestinal: Reports as per HPI and Reports no additional gastrointestinal complaints Musculoskeletal: Musculoskeletal: Reports no additional musculoskeletal complaints Integumentary/Breasts: Skin/Breast: Reports system reviewed and no additional complaints, except as docu and Reports as per HPI Neurologic: Reports system reviewed and no additional complaints, except as documented, Reports as per HPI and Reports Normal hearing present Psychiatric: Psychiatric: Reports no additional psychiatric complaints and Reports as per HPI Endocrine: Endocrine: Reports no additional endocrine complaints Hematologic/Lymphatic: Hematologic/Lymphatic: Reports no additional hematologic/lymphatic complaints Allergic/Immunologic: Allergic/Immunologic: Reports no additional allergic/immunologic complaints [facility] Past Medical History Medical History (Updated 11/03/22 @ 02:05 by Rashmi Burris NP) Ankle fracture Bipolar 1 disorder Bronchitis Clavicle fracture COVID-19 Degenerative disc disease Surgical History Surgical History H/O tubal ligation History of tonsillectomy Family History Family History Father Alcoholism Diabetes mellitus Hypertension Depression Heart disease Mother Cancer Depression Other Asthma Depression Grandparent Alcoholism Cancer Diabetes mellitus Hypertension Heart disease Depression Grandparent Depression Other No active medical problems Social History Social History (Updated 11/03/22 @ 02:03 by Rashmi Burris NP) Social History: She currently works at [employer] and smokes about half pack a cigarettes a day. She has 3 children. Her is a durable power claims attorney for healthcare. Code status full code Smoking packs per day: 0.5 Smoking cigarettes per day: 10.0 Years smoked: 25 Smoking pack-years: 12.50 Smoking status: Current every day smoker Tobacco type: cigarettes Alcohol intake: never Substance use: never Substance use type: does not use Lack of Transportation: No Lack of Food: Never True Current Housing: I Have Housing Concerned About Future Housing: No Difficulty Paying Gas/Electric Bills: No Difficu
[2022-11-02 21:30] VITALS: BP 125/72; PULSE 78; O2SAT 97
[2022-11-02] MEDS: METOCLOPRAMIDE HCL INJ 10 MG/2 ML VIAL IV PUSH (21:30)
[2022-11-02] MEDS: HYDROmorphone HCL INJ (*CRX) 1 MG/ML SYR IV PUSH (21:31)
[2022-11-03] MEDS: HYDROmorphone HCL INJ (*CRX) 1 MG/ML SYR IV PUSH ×6 (00:27→17:28)
[2022-11-03] MEDS: SODIUM CHLORIDE 0.9% IV 1,000 ML 150 ML IV CONT (03:12)
[2022-11-03] MEDS: KETOROLAC 30 MG/ML VIAL (*BKC) (03:13)
[2022-11-03 05:19] VITALS: BP 100/58; PULSE 70; RESP 18; TEMP 36.8; O2SAT 100
[2022-11-03 06:01] LABS: Basophils Percent Auto 0.4 % (0.2-1.2); Eosinophils Absolute Auto 0.1 K/mm3 (0-0.3); Eosinophils Percent Auto 0.6 % (0-4.4); Hematocrit 39.6 % (37.0-47.0); Hemoglobin 12.8 g/dL (12.0-15.0); Immature Granulocyte Absolute 0.04 K/mm3 (0.00-0.031); Immature Granulocyte Percent A 0.4 % (0-0.5); Lymphocytes Absolute Auto 2.06 K/mm3 (0.9-3.2); Lymphocytes Percent Auto 21.4 % (18.3-44.2); Mean Corpuscular HGB Conc 32.3 g/dl (32-36); Mean Corpuscular Hemoglobin 30.8 pg (26-34); Mean Corpuscular Volume 95.2 fl (80-100); Mean Platelet Volume 10.7 fl (7.4-10.4); Monocytes Absolute Auto 0.5 K/mm3 (0.1-0.6); Monocytes Percent Auto 5.6 % (2.6-8.5); Neutrophils Absolute Auto 6.9 K/mm3 (1.3-6.7); Neutrophils Percent Auto 71.6 % (45.5-73.1); Platelet Count Result 144 k/mm3 (150-375); Red Blood Count 4.16 M/mm3 (4.2-5.4); Red Cell Distribution Width 12.4 % (11.5-14.5); White Blood Count 9.6 K/mm3 (4.5-10.0)
[2022-11-03 06:23] LABS: Lactic Acid Reflex 1.1 mmol/L (0.7-2.0)
[2022-11-03 06:30] LABS: Alanine Aminotransferase 318 U/L (6-35); Albumin Level 3.5 g/dL (3.5-5.1); Alkaline Phosphatase 115 U/L (38-126); Anion Gap 3 mmol/L (8-16); Aspartate Amino Transferase 147 U/L (14-36); Bilirubin,Total 0.7 mg/dL (0.2-1.3); Blood Urea Nitrogen 11 mg/dL (7-17); Calcium 7.9 mg/dL (8.4-10.2); Carbon Dioxide 26 mmol/L (22-30); Chloride 109 mmol/L (98-107); Estimated CRCL calculation 109 ml/min; Estimated Glomerular Filt Rate > 60; Glucose 103 mg/dL (65-110); Magnesium 1.8 mg/dL (1.6-2.3); Sodium 138 mmol/L (137-145)
[2022-11-03 08:14] LABS: Hepatitis B Surface Antigen Negative (Negative)
[2022-11-03 08:20] LABS: HAV RESULT Negative (Negative); Hepatitis B Core IgM Result Negative (Negative)
[2022-11-03 08:32] LABS: Hepatitis C Virus Antibody Negative (Negative)
[2022-11-03] MEDS: KETOROLAC 30 MG/ML VIAL (*BKC) IV PUSH (08:43)
[2022-11-03] MEDS: PANTOPRAZOLE SODIUM IV 40 MG VIAL IV PUSH (08:43)
--- NOTE | 2022-11-03 08:49 | PC.NURSE ---
[facility]
--- NOTE | 2022-11-03 10:11 | PC.NURSE ---
Patient returned to unit from [facility]
--- NOTE | 2022-11-03 10:17 | PM.IMPN ---
Progress Note: A&P Assessment and Plan (1) Choledocholithiasis: Code(s): K80.50 - Calculus of bile duct without cholangitis or cholecystitis without obstruction Status: Acute Assessment and Plan: MRCP confirms choledocholithiasis and intra and extrahepatic biliary dilatation. Continue with IV fluids. Continue with analgesics. Continue with antiemetics. GI and surgery have both been consulted. (2) Bipolar 1 disorder: Code(s): F31.9 - Bipolar disorder, unspecified Status: Acute Assessment and Plan: The patient is NPO at this time. Her venlafaxine and BuSpirone are on hold at this time. Subjective Date/time seen: 11/03/22 10:17 Interval history: No new issues overnight Review of Systems Review of Systems: All systems reviewed & are unremarkable except as noted in HPI and below Exam Const: General: cooperative, comfortable, no acute distress, well developed, alert, awake, Physically active, ill appearing, average body habitus and well nourished Nutritional Appearance: average body habitus and well nourished Orientation/consciousness: oriented to person, oriented to place, oriented to time and patient oriented x3 Limitations: no limitations HENMT: Head: normal to inspection, No palpable skull fracture present, normocephalic and atraumatic Ears: hearing grossly normal bilaterally and external ears normal Face/Nose/Sinus: Normal external nose present and Normal nares present Eyes: General: appearance normal, both eyes and all related structures Alignment and Position: alignment normal Periorbital: periorbital findings normal Eyelids: eyelids normal Sclera: sclerae normal Pupils: Equal, round and reactive pupils present EOM: EOMs intact bilaterally Neck: Neck: normal visual inspection, full ROM, no lymphadenopathy, trachea midline and supple Chest: Chest palpation & inspection: normal inspection of the chest Resp: Effort & Inspection: normal respiratory effort Auscultation: clear to auscultation bilaterally Percussion: percussion normal Cardio: Palpation: normal PMI Rate: regular rate Rhythm: regular rhythm Heart sounds: S1 normal heart sound present and S2 normal heart sound present Peripheral pulses: Peripheral pulses 2+ throughout GI: Inspection: normal to inspection Auscultation: normal bowel sounds Rectal Exam: deferred Other: Epigastric tenderness to umbilical area Back/Spine/Pelvis: Cervical Spine: cervical ROM normal Skin: General skin exam: normal color Lesions: no lesions Rashes: no rashes Trauma: no lacerations or abrasions Wounds: no wounds Hair: normal Nails: normal Neuro: General: oriented to person, oriented to place, oriented to time and patient oriented x3 Cranial nerves: Yes Equal, round and reactive pupils present and Yes Normal hearing present Cognition (Neuro): normal cognition Speech: normal speech Gait exam (Neuro): Normal gait present Motor exam (neuro): 5/5 motor strength present throughout Sensory Exam: normal sensation Extrem: General: normal to inspection Right upper extremity: normal to inspection and shoulder/upper arm Left upper extremity: normal to inspection and shoulder/upper arm Right lower extremity: normal to inspection Left lower extremity: normal to inspection Psych: Appearance: grossly normal Mental Status: mental status grossly normal Speech and movement: Normal speech and movement present Affect: normal affect Attitude: cooperative Thought process: Normal thought process present Thought content: Yes Normal thought content present Insight: Good insight present (Psych) Judgement: Good judgement present (Psych) Objective Data Vital Signs Vital Signs: Vital Signs - 24 hr 11/02/22 13:48 11/02/22 15:58 11/02/22 19:17 Temperature 97.8 F 97.7 F Pulse Rate 93 62 83 Respiratory Rate 18 20 18 Blood Pressure 137/73 124/62 123/72 Pulse Oximetry 99 100 94 Oxygen Delivery 11/02/22 20:00 11/02/22 21:
--- NOTE | 2022-11-03 10:27 | WPDGICN ---
Assessment and Plan Assessment and plan (1) Choledocholithiasis: Code(s): K80.50 - Calculus of bile duct without cholangitis or cholecystitis without obstruction Status: Acute Assessment and Plan: In MRCP suggest choledocholithiasis. She also may have incomplete pancreas divisum. Continue antibiotics. ERCP will be planned this next week. Pancreas divisum may make this more difficult to accomplish. Will continue broad-spectrum antibiotics and proceed accordingly. (2) Cholelithiasis: Qualifiers: Biliary obstruction: with biliary obstruction Cholecystitis presence: without cholecystitis Cholelithiasis location: gallbladder and bile duct Qualified Code(s): K80.71 - Calculus of gallbladder and bile duct without cholecystitis with obstruction Code(s): K80.20 - Calculus of gallbladder without cholecystitis without obstruction Status: Acute (3) Bipolar 1 disorder: Code(s): F31.9 - Bipolar disorder, unspecified Status: Acute (4) Abdominal pain: Code(s): R10.9 - Unspecified abdominal pain Status: Acute GI Consult Note Consult date/time: 11/03/22 10:27 Reason for consult: Choledocholithiasis. HPI: Cyn Maldonado is a 47 year old female I am asked to see at the request of the hospitalist service because of gallstones, cholecystitis. Patient has had occasional episodes of epigastric pain intermittently over the last year. Initially treated with acid suppression this failed to improve her symptoms. Patient subsequently presented to [facility] because rather significant abdominal pain. In the emergency room elevated LFTs were noted. CT scan was performed which revealed some evidence of biliary dilatation. Concerns over possible common bile duct gallstone was noted. MRCP performed today suggest reveals gallstones but also apparent common bile duct gallstones. Patient complains of vague diffuse abdominal pain across her chest, mid epigastric, right upper quadrant , and left lower quadrant of the abdomen. Review of Systems Review of Systems: Review of systems noncontributory. [facility] Past Medical History Medical History (Updated 11/03/22 @ 10:30 by Emmanuel Arriaza MD) Ankle fracture Bipolar 1 disorder Bronchitis Clavicle fracture COVID-19 Degenerative disc disease Surgical History Surgical History H/O tubal ligation History of tonsillectomy Family History Family History Father Alcoholism Diabetes mellitus Hypertension Depression Heart disease Mother Cancer Depression Other Asthma Depression Grandparent Alcoholism Cancer Diabetes mellitus Hypertension Heart disease Depression Grandparent Depression Other No active medical problems Social History Social History (Updated 11/03/22 @ 02:03 by Rashmi Burris NP) Social History: She currently works at [employer] and smokes about half pack a cigarettes a day. She has 3 children. Her is a durable power securities attorney for healthcare. Code status full code Smoking packs per day: 0.5 Smoking cigarettes per day: 10.0 Years smoked: 25 Smoking pack-years: 12.50 Smoking status: Current every day smoker Tobacco type: cigarettes Alcohol intake: never Substance use: never Substance use type: does not use Lack of Transportation: No Lack of Food: Never True Current Housing: I Have Housing Concerned About Future Housing: No Difficulty Paying Gas/Electric Bills: No Difficulty Paying for Meds: No Currently Unemployed: No Education: High School Diploma/GED Difficulty w/ Childcare or Family Care: No Spiritual care concerns: No Meds Home Medications and Allergies Home Medications Medication Instructions Recorded Confirmed Type buspirone 10 mg tablet 10 mg PO PRN PRN Anxiety 08/30/22
--- NOTE | 2022-11-03 12:15 | PM.CNGS ---
Assessment and Plan Assessment and plan (1) Choledocholithiasis with cholecystitis: Code(s): K80.40 - Calculus of bile duct with cholecystitis, unspecified, without obstruction Status: Acute Assessment and Plan: Patient is still pretty uncomfortable. I will change her analgesics to hopefully alleviate at least some of that. Will start clear liquids as no procedures are planned for today. She will continue IV Zosyn antibiotics. Dr. Arriaza plans to proceed with ERCP this week. Continue IV fluids and analgesics with careful monitoring clinically and with labs and imaging. (2) Bipolar 1 disorder: Code(s): F31.9 - Bipolar disorder, unspecified Status: Chronic Assessment and Plan: Continue home meds (3) Smoker: Code(s): F17.200 - Nicotine dependence, unspecified, uncomplicated Status: Chronic Assessment and Plan: Advised to stop (4) GERD (gastroesophageal reflux disease): Code(s): K21.9 - Gastro-esophageal reflux disease without esophagitis Status: Chronic Assessment and Plan: Continue proton pump inhibitors History of Present Illness Consult details Consult date: 11/03/22 Reason for consult: gallstones Requesting physician: Phong Bhatt MD Narrative: The patient is a 47-year-old woman who has had off and on epigastric abdominal pain for about a year. Per the last week this has gotten progressively worse. It was thought this may be acid related but antacids Ramos helping. She had such severe pain that she could not sleep last night. She went to the emergency room yesterday. She was noted to have epigastric and right upper quadrant tenderness. Bowel sounds were diminished. Her white blood cell count was 8800. She had a CT scan of the abdomen and pelvis which showed gallbladder distention with bile ducts distended as well. There was also suggestion of sludge or stones in the common bile duct. Her bilirubin was normal but AST and ALT were slightly elevated. Alkaline phosphatase was normal. MRCP was done earlier today and did show choledocholithiasis. Dr. Arriaza has seen the patient in consultation. The patient is feeling better but still having pain. She is seen now in consultation regarding gallstones and choledocholithiasis. Review of Systems Review of Systems: All systems reviewed & are unremarkable except as noted in HPI and below (HPI and those items noted below) Constitutional: Constitutional: Denies chills and Denies fever(s) Cardiovascular: Cardiovascular: Denies chest pain, Denies diaphoresis, Denies dyspnea and Denies paroxysmal nocturnal dyspnea Respiratory: Respiratory: Denies chest congestion, Denies cough and Denies dyspnea Integumentary/Breasts: Skin/Breast: Denies lesions and Denies rash PMFSH Past Medical History Medical History Ankle fracture Bipolar 1 disorder Bronchitis Clavicle fracture COVID-19 Degenerative disc disease Surgical History Surgical History H/O tubal ligation History of tonsillectomy Family History Family History Father Alcoholism Diabetes mellitus Hypertension Depression Heart disease Mother Cancer Depression Other Asthma Depression Grandparent Alcoholism Cancer Diabetes mellitus Hypertension Heart disease Depression Grandparent Depression Other No active medical problems Social History Social History Social History: She currently works at [employer] and smokes about half pack a cigarettes a day. She has 3 children. Her is a durable power consumer attorney for healthcare. Code status full code Smoking packs per day: 0.5 Smoking cigarettes per day: 10.0 Years smoked: 25 Smoking pack-years: 12.50 Smoking status: Current every day smoker
[2022-11-03] MEDS: IBUPROFEN IV 800 MG/200 ML 800 MG/200 ML BAG 400 MG IVPB ×3 (12:34→22:53)
[2022-11-03] MEDS: SODIUM CHLORIDE 0.9% IV 1,000 ML 125 ML IV CONT ×2 (12:36→19:53)
--- NOTE | 2022-11-03 13:04 | PC.NURSE ---
Patient drinking ice water now, but wants to hold off on clear liquid tray until dinner.
[2022-11-03 13:29] VITALS: BP 101/55; PULSE 73; RESP 20; TEMP 36.6; O2SAT 96
[2022-11-03] MEDS: ONDANSETRON INJ 4 MG/2 ML VIAL IV PUSH (14:28)
[2022-11-03] MEDS: HYDROmorphone HCL INJ (*CRX) 1 MG/ML SYR 0.5 MG IV PUSH (19:53)
[2022-11-03 20:47] VITALS: BP 103/52; PULSE 83; RESP 20; TEMP 36.4; O2SAT 95
[2022-11-04] MEDS: HYDROmorphone HCL INJ (*CRX) 1 MG/ML SYR IV PUSH ×7 (01:58→23:50)
[2022-11-04 04:16] VITALS: BP 110/66; PULSE 93; RESP 20; TEMP 36.8; O2SAT 94
[2022-11-04] MEDS: IBUPROFEN IV 800 MG/200 ML 800 MG/200 ML BAG 400 MG IVPB (06:27)
[2022-11-04] MEDS: SODIUM CHLORIDE 0.9% IV 1,000 ML 125 ML IV CONT (06:28)
[2022-11-04 06:48] LABS: Hematocrit 37.3 % (37.0-47.0); Hemoglobin 11.9 g/dL (12.0-15.0); Immature Platelet Fraction Pct 5.4 % (0.9-11.2); Mean Corpuscular HGB Conc 31.9 g/dl (32-36); Mean Corpuscular Hemoglobin 30.6 pg (26-34); Mean Corpuscular Volume 95.9 fl (80-100); Mean Platelet Volume 11.4 fl (7.4-10.4); Platelet Count Result 109 k/mm3 (150-375); Red Blood Count 3.89 M/mm3 (4.2-5.4); Red Cell Distribution Width 12.4 % (11.5-14.5)
[2022-11-04 07:05] LABS: Alanine Aminotransferase 211 U/L (6-35); Albumin Level 3.4 g/dL (3.5-5.1); Alkaline Phosphatase 120 U/L (38-126); Anion Gap 8 mmol/L (8-16); Aspartate Amino Transferase 49 U/L (14-36); Bilirubin,Total 1.2 mg/dL (0.2-1.3); Blood Urea Nitrogen 8 mg/dL (7-17); Carbon Dioxide 21 mmol/L (22-30); Chloride 106 mmol/L (98-107); Estimated CRCL calculation 126 ml/min; Estimated Glomerular Filt Rate > 60; Glucose 85 mg/dL (65-110); Lipase 55 U/L (23-300); Potassium 3.7 mmol/L (3.4-5.0); Sodium 135 mmol/L (137-145)
[2022-11-04] MEDS: PANTOPRAZOLE SODIUM IV 40 MG VIAL IV PUSH (09:23)
[2022-11-04] MEDS: VENLAFAXINE HCL XR 75 MG CAP.ER.24H PO (09:24)
--- NOTE | 2022-11-04 10:42 | PM.PNGS ---
Progress Note: A&P Assessment and Plan (1) Choledocholithiasis with cholecystitis: Code(s): K80.40 - Calculus of bile duct with cholecystitis, unspecified, without obstruction Status: Acute Assessment and Plan: Still having pain although better than on admission. Will need eventual cholecystectomy. Timing of ERCP being considered per Dr. Arriaza. (2) GERD (gastroesophageal reflux disease): Code(s): K21.9 - Gastro-esophageal reflux disease without esophagitis Status: Chronic (3) Bipolar 1 disorder: Code(s): F31.9 - Bipolar disorder, unspecified Status: Chronic (4) Smoker: Code(s): F17.200 - Nicotine dependence, unspecified, uncomplicated Status: Chronic Subjective Subjective Date/Time Seen: 11/04/22 10:42 Patient reports: feels better (Still taking analgesics), still having pain (Pain better overall) and afebrile Review of Systems Review of Systems: All systems reviewed & are unremarkable except as noted in HPI and below (HPI and those items noted below) Constitutional: Constitutional: Denies chills and Denies fever(s) Cardiovascular: Cardiovascular: Denies chest pain, Denies diaphoresis, Denies dyspnea and Denies paroxysmal nocturnal dyspnea Respiratory: Respiratory: Denies chest congestion, Denies cough and Denies dyspnea Integumentary/Breasts: Skin/Breast: Denies lesions and Denies rash Exam Const: General: comfortable, no acute distress, alert, awake, tired appearing and well nourished Orientation/consciousness: patient oriented x3 GI: Inspection: non-distended GI Palp: Yes Soft to palpation, Yes Tenderness to palpation present (GI) (Epigastric), No Guarding due to palpation present (GI) and No Rebound tenderness present Neuro: General: patient oriented x3 and no focal motor deficits Extrem: General: no calf tenderness and no edema Psych: Affect: normal affect Insight: Good insight present (Psych) Judgement: Good judgement present (Psych) Objective Data Vital Signs Vital Signs: Vital Signs - 24 hr 11/03/22 13:29 11/03/22 20:47 11/03/22 20:00 Temperature 36.6 C 36.4 C Pulse Rate 73 83 Respiratory Rate 20 20 Blood Pressure 101/55 L 103/52 L Pulse Oximetry 96 95 Oxygen Delivery Room Air 11/04/22 04:16 11/04/22 09:24 Temperature 36.8 C Pulse Rate 93 Respiratory Rate 20 Blood Pressure 110/66 Pulse Oximetry 94 Oxygen Delivery Room Air Intake/Output Intake/Output: Intake & Output 11/01/22 11/02/22 11/03/22 11/04/22 23:59 23:59 23:59 23:59 Intake Total 1000 3720 1770 Balance 1000 3720 1770 Meds/Results Medications: Active Medications Generic Name Dose Route Start Last Admin Trade Name Freq PRN Reason Stop Dose Admin Buspirone HCl 10 mg 11/03/22 11:56 Buspirone Hcl 10 Mg Tablet PO PRN PRN Anxiety Hydromorphone HCl 0.5 mg 11/03/22 11:51 11/03/22 19:53 Hydromorphone Hcl Inj (*Crx) 1 Mg/Ml Syr IV PUSH 0.5 mg Q2H PRN Administration Pain Rated 4-6 Hydromorphone HCl 1 mg 11/03/22 11:51 11/04/22 09:24 Hydromorphone Hcl Inj (*Crx) 1 Mg/Ml Syr IV PUSH 1 mg Q2H PRN Administration Pain Rated 7-10 Sodium Chloride 1,000 mls @ 100 mls/hr 11/02/22 17:45 11/04/22 06:28 Normal Saline Iv IV CONT 125 mls/hr .Q10H WYATT Administration Ibuprofen 800 mg in 200 mls @ 400 mls/hr 11/03/22 12:00 11/04/22 06:27 Caldolor 800 Mg/200 Ml IVPB Infused Q6HR WYATT Infusion Naloxone HCl 0.1 mg 11/03/22 11:51 Naloxone Hcl 0.4 Mg/Ml Vial IV PUSH Q2M PRN Opiate Reversal Ondansetron HCl 4 mg 11/02/22 17:45 11/03/22 14:28 Ondansetron Inj 4 Mg/2 Ml Vial IV PUSH 4 mg Q4H PRN Administration Nausea Pantoprazole Sodium 40 mg 11/04/22 09:00 11/04/22 09:23 Pantoprazole Sodium Iv 40 Mg Vial IV PUSH 40 mg QAM WYATT Administration Venlafaxine HCl 75 mg 11/04/22 09:00 11/04/22 09:24 Venlafaxine Hcl Xr 75 Mg Cap.Er.24h PO 75 mg D
--- NOTE | 2022-11-04 10:44 | WPDGIPROGNO ---
Progress Note: A&P Assessment and Plan (1) Choledocholithiasis with cholecystitis: Code(s): K80.40 - Calculus of bile duct with cholecystitis, unspecified, without obstruction Status: Acute Assessment and Plan: MRCP reveals common bile duct gallstones well as apparent cholecystitis. LFTs are improving. Plan to continue antibiotics. ERCP will be planned on Friday. Surgical therapy anticipated after ERCP. (2) Abdominal pain: Code(s): R10.9 - Unspecified abdominal pain Status: Acute Assessment and Plan: Abdominal pain improving with current therapy. LFTs have diminished. (3) Cholelithiasis: Qualifiers: Biliary obstruction: with biliary obstruction Cholecystitis presence: without cholecystitis Cholelithiasis location: gallbladder and bile duct Qualified Code(s): K80.71 - Calculus of gallbladder and bile duct without cholecystitis with obstruction Code(s): K80.20 - Calculus of gallbladder without cholecystitis without obstruction Status: Acute Subjective Date/time seen: 11/04/22 10:44 Interval history: Patient states that she feels somewhat better today. Still complains of abdominal pain located in the midepigastric area. Review of Systems Review of Systems: Review of systems noncontributory. Exam Narrative: Physical exam reveals patient to be alert. Vital signs stable. HEENT exam unremarkable. Patient is anicteric. Lungs are clear to auscultation and percussion. Heart is without murmur or extra sounds. Abdomen bowel sounds present soft tender in the epigastric right upper quadrant area. Objective Data Vital Signs Vital Signs: Vital Signs - 24 hr 11/03/22 13:29 11/03/22 20:47 11/03/22 20:00 Temperature 97.9 F 97.6 F Pulse Rate 73 83 Respiratory Rate 20 20 Blood Pressure 101/55 L 103/52 L Pulse Oximetry 96 95 Oxygen Delivery Room Air 11/04/22 04:16 11/04/22 09:24 Temperature 98.3 F Pulse Rate 93 Respiratory Rate 20 Blood Pressure 110/66 Pulse Oximetry 94 Oxygen Delivery Room Air Intake/Output Intake/Output: Intake & Output 11/01/22 11/02/22 11/03/22 11/04/22 23:59 23:59 23:59 23:59 Intake Total 1000 3720 1770 Balance 1000 3720 1770 Meds/Results Medications: Active Medications Generic Name Dose Route Start Last Admin Trade Name Freq PRN Reason Stop Dose Admin Buspirone HCl 10 mg 11/03/22 11:56 Buspirone Hcl 10 Mg Tablet PO PRN PRN Anxiety Hydromorphone HCl 0.5 mg 11/03/22 11:51 11/03/22 19:53 Hydromorphone Hcl Inj (*Crx) 1 Mg/Ml Syr IV PUSH 0.5 mg Q2H PRN Administration Pain Rated 4-6 Hydromorphone HCl 1 mg 11/03/22 11:51 11/04/22 09:24 Hydromorphone Hcl Inj (*Crx) 1 Mg/Ml Syr IV PUSH 1 mg Q2H PRN Administration Pain Rated 7-10 Sodium Chloride 1,000 mls @ 100 mls/hr 11/02/22 17:45 11/04/22 06:28 Normal Saline Iv IV CONT 125 mls/hr .Q10H WYATT Administration Ibuprofen 800 mg in 200 mls @ 400 mls/hr 11/03/22 12:00 11/04/22 06:27 Caldolor 800 Mg/200 Ml IVPB Infused Q6HR WYATT Infusion Naloxone HCl 0.1 mg 11/03/22 11:51 Naloxone Hcl 0.4 Mg/Ml Vial IV PUSH Q2M PRN Opiate Reversal Ondansetron HCl 4 mg 11/02/22 17:45 11/03/22 14:28 Ondansetron Inj 4 Mg/2 Ml Vial IV PUSH 4 mg Q4H PRN Administration Nausea Pantoprazole Sodium 40 mg 11/04/22 09:00 11/04/22 09:23 Pantoprazole Sodium Iv 40 Mg Vial IV PUSH 40 mg QAM WYATT Administration Venlafaxine HCl 75 mg 11/04/22 09:00 11/04/22 09:24 Venlafaxine Hcl Xr 75 Mg Cap.Er.24h PO 75 mg DAILY WYATT Administration Radiology Results: ITS Impressions Abdomen/Pelvis CT 11/02/22 16:26 IMPRESSION: 1. Gallbladder distention with intrahepatic and extrahepatic biliary dilatation and apparent debris or stones in the common bile duct. Consider correlation with MRCP. MRCP 11/03/22 10:00 IMPRESSION: 1. Choledochol
--- NOTE | 2022-11-04 10:52 | PM.IMPN ---
Progress Note: A&P Assessment and Plan (1) Choledocholithiasis: Code(s): K80.50 - Calculus of bile duct without cholangitis or cholecystitis without obstruction Status: Acute Assessment and Plan: MRCP confirms choledocholithiasis and intra and extrahepatic biliary dilatation. Continue with IV fluids. Continue with analgesics. Continue with antiemetics. GI and surgery have both been consulted. Plan for ERCP tomorrow. Patient will eventually need cholecystectomy. Keep NPO from midnight (2) Bipolar 1 disorder: Code(s): F31.9 - Bipolar disorder, unspecified Status: Chronic Assessment and Plan: Her venlafaxine and BuSpirone are on hold at this time. Subjective Date/time seen: 11/04/22 10:52 Interval history: Still having abdominal pain although better than yesterday Review of Systems Review of Systems: Review of systems noncontributory. Exam Const: General: cooperative, comfortable, no acute distress, well developed, alert, awake, Physically active, ill appearing, average body habitus and well nourished Nutritional Appearance: average body habitus and well nourished Orientation/consciousness: oriented to person, oriented to place, oriented to time and patient oriented x3 Limitations: no limitations HENMT: Head: normal to inspection, No palpable skull fracture present, normocephalic and atraumatic Ears: hearing grossly normal bilaterally and external ears normal Face/Nose/Sinus: Normal external nose present and Normal nares present Eyes: General: appearance normal, both eyes and all related structures Alignment and Position: alignment normal Periorbital: periorbital findings normal Eyelids: eyelids normal Sclera: sclerae normal Pupils: Equal, round and reactive pupils present EOM: EOMs intact bilaterally Neck: Neck: normal visual inspection, full ROM, no lymphadenopathy, trachea midline and supple Chest: Chest palpation & inspection: normal inspection of the chest Resp: Effort & Inspection: normal respiratory effort Auscultation: clear to auscultation bilaterally Percussion: percussion normal Cardio: Palpation: normal PMI Rate: regular rate Rhythm: regular rhythm Heart sounds: S1 normal heart sound present and S2 normal heart sound present Peripheral pulses: Peripheral pulses 2+ throughout GI: Inspection: normal to inspection Auscultation: normal bowel sounds Rectal Exam: deferred Other: Epigastric tenderness to umbilical area Back/Spine/Pelvis: Cervical Spine: cervical ROM normal Skin: General skin exam: normal color Lesions: no lesions Rashes: no rashes Trauma: no lacerations or abrasions Wounds: no wounds Hair: normal Nails: normal Neuro: General: oriented to person, oriented to place, oriented to time and patient oriented x3 Cranial nerves: Yes Equal, round and reactive pupils present and Yes Normal hearing present Cognition (Neuro): normal cognition Speech: normal speech Gait exam (Neuro): Normal gait present Motor exam (neuro): 5/5 motor strength present throughout Sensory Exam: normal sensation Extrem: General: normal to inspection Right upper extremity: normal to inspection and shoulder/upper arm Left upper extremity: normal to inspection and shoulder/upper arm Right lower extremity: normal to inspection Left lower extremity: normal to inspection Psych: Appearance: grossly normal Mental Status: mental status grossly normal Speech and movement: Normal speech and movement present Affect: normal affect Attitude: cooperative Thought process: Normal thought process present Thought content: Yes Normal thought content present Insight: Good insight present (Psych) Judgement: Good judgement present (Psych) Objective Data Vital Signs Vital Signs: Vital Signs - 24 hr 11/03/22 13:29 11/03/22 20:47 11/03/22 20:00 Temperature 97.9 F 97.6 F Pulse Rate 73 83 Respiratory Rate 20 20 Blood Pressure 101/55 L 103/52 L Pulse Oximetry 96
[2022-11-04] MEDS: IBUPROFEN IV 800 MG/200 ML 800 MG/200 ML BAG 300 MG IVPB ×3 (11:56→23:50)
[2022-11-04 14:43] VITALS: BP 103/56; PULSE 63; RESP 18; TEMP 36.4; O2SAT 100
[2022-11-04] MEDS: SODIUM CHLORIDE 0.9% IV 1,000 ML 100 ML IV CONT (16:26)
[2022-11-04 21:23] VITALS: BP 106/62; PULSE 88; RESP 18; TEMP 37.3; O2SAT 100
[2022-11-05] VITALS (11 sets, daily range): BP systolic 101–119; BP diastolic 49–76; PULSE 69–97; RESP 16–23; TEMP 35.6–37.1; O2SAT 72–99
[2022-11-05] MEDS: HYDROmorphone HCL INJ (*CRX) 1 MG/ML SYR IV PUSH ×5 (03:28→20:21)
[2022-11-05] MEDS: SODIUM CHLORIDE 0.9% IV 1,000 ML 100 ML IV CONT ×3 (03:28→20:20)
[2022-11-05] MEDS: IBUPROFEN IV 800 MG/200 ML 800 MG/200 ML BAG 300 MG IVPB ×3 (05:33→18:21)
--- NOTE | 2022-11-05 08:05 | WPDANESEPPF ---
Anes - Initial Pre Proc Eval Procedure: Operation Date: 11/05/22 13:30 Proposed Procedures p Endoscopic Retro Cholangiopancreatogram - Emmanuel Arriaza MD Date/Time: 11/05/22 08:05 Surgeon: Neville Mendez MD Pre Op Diagnosis: Epigastric Pain,Elevated Liver Enzyme,Choledocholi Patient Data Age: 47 Gender: F Height: 1.75 m Weight: 98.6 kg Last Vital Signs Temp 36.8 C 11/05/22 04:04 Pulse 72 11/05/22 04:04 Resp 18 11/05/22 04:04 BP 112/49 L 11/05/22 04:04 Pulse Ox 96 11/05/22 04:04 O2 Del Method Room Air 11/04/22 20:00 Allergies Allergy/AdvReac Type Severity Reaction Status Date / Time erythromycin base Allergy Mild Nausea and Verified 11/05/22 12:34 Vomiting Home Medications Medication Instructions Recorded Confirmed Type buspirone 10 mg tablet 10 mg PO PRN PRN Anxiety 08/30/22 11/02/22 History omeprazole 20 mg capsule,delayed 20 mg PO DAILY #14 caps 08/30/22 11/03/22 Rx release venlafaxine 75 mg capsule,extended 75 mg PO DAILY 11/02/22 11/02/22 History release 24 hr Patient hx anesthesia problems: none Family hx anesthesia problems: none Results Review: All pre-operative results and documents have been reviewed as part of the pre-operative evaluation. FORMERLY [facility], [facility] Past Medical History Medical History Ankle fracture Bipolar 1 disorder Bronchitis Clavicle fracture COVID-19 Degenerative disc disease Surgical History Surgical History H/O tubal ligation History of tonsillectomy Family History Family History Father Alcoholism Diabetes mellitus Hypertension Depression Heart disease Mother Cancer Depression Other Asthma Depression Grandparent Alcoholism Cancer Diabetes mellitus Hypertension Heart disease Depression Grandparent Depression Other No active medical problems Social History Social History Social History: She currently works at [employer] and smokes about half pack a cigarettes a day. She has 3 children. 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 Code status full code Smoking packs per day: 0.5 Smoking cigarettes per day: 10.0 Years smoked: 25 Smoking pack-years: 12.50 Smoking status: Current every day smoker Tobacco type: cigarettes Alcohol intake: never Substance use: never Substance use type: does not use Lack of Transportation: No Lack of Food: Never True Current Housing: I Have Housing Concerned About Future Housing: No Difficulty Paying Gas/Electric Bills: No Difficulty Paying for Meds: No Currently Unemployed: No Education: High School Diploma/GED Difficulty w/ Childcare or Family Care: No Spiritual care concerns: No Anes - Eval Final PreProcedure Day of Procedure 11/05/22 08:05 Patient weight: obese Heart: regular rate and rhythm Lungs: clear to auscultation Airway: Mallampati scale class II Neurological: alert and oriented Last oral intake: >/= 8 hours ASA classification: III Emergent: no Anesthetic plan: proceed Anesthesia type and monitoring: general ETT and standard monitoring Results Review: All pre-operative results and documents have been reviewed as part of the pre-operative evaluation. Informed Consent: The patient's anesthetic plan and its attendant risks and benefits were discussed with the patient/family/POA. Questions were solicited and answers provided to the satisfaction of the patient/family/POA.
[2022-11-05] MEDS: PANTOPRAZOLE SODIUM IV 40 MG VIAL IV PUSH (08:33)
--- NOTE | 2022-11-05 10:27 | PM.PNGS ---
Progress Note: A&P Assessment and Plan (1) Choledocholithiasis with cholecystitis: Code(s): K80.40 - Calculus of bile duct with cholecystitis, unspecified, without obstruction Status: Acute Assessment and Plan: Patient to have ERCP today. Await results of that procedure. Will need eventual cholecystectomy. (2) Smoker: Code(s): F17.200 - Nicotine dependence, unspecified, uncomplicated Status: Chronic Assessment and Plan: Increases surgical risks Subjective Subjective Date/Time Seen: 11/05/22 10:27 Patient reports: feels better (Feels a small bit better), still having pain, tolerating liquids well, no bowel movement and afebrile Review of Systems Review of Systems: All systems reviewed & are unremarkable except as noted in HPI and below (HPI) Exam Const: General: cooperative, comfortable, no acute distress, alert, awake and well nourished Nutritional Appearance: average body habitus Orientation/consciousness: patient oriented x3 GI: Inspection: non-distended GI Palp: Yes Soft to palpation and Yes Tenderness to palpation present (GI) (Epigastric and right upper quadrant) Objective Data Vital Signs Vital Signs: Vital Signs - 24 hr 11/04/22 14:43 11/04/22 20:00 11/04/22 21:23 Temperature 36.4 C 37.3 C Pulse Rate 63 88 Respiratory Rate 18 18 Blood Pressure 103/56 L 106/62 Pulse Oximetry 100 100 Oxygen Delivery Room Air 11/05/22 04:04 11/05/22 08:00 Temperature 36.8 C Pulse Rate 72 Respiratory Rate 18 Blood Pressure 112/49 L Pulse Oximetry 96 Oxygen Delivery Room Air Intake/Output Intake/Output: Intake & Output 11/02/22 11/03/22 11/04/22 11/05/22 23:59 23:59 23:59 23:59 Intake Total 1000 3720 3440 1600 Balance 1000 3720 3440 1600 Meds/Results Medications: Active Medications Generic Name Dose Route Start Last Admin Trade Name Freq PRN Reason Stop Dose Admin Buspirone HCl 10 mg 11/03/22 11:56 Buspirone Hcl 10 Mg Tablet PO PRN PRN Anxiety Hydromorphone HCl 0.5 mg 11/03/22 11:51 11/03/22 19:53 Hydromorphone Hcl Inj (*Crx) 1 Mg/Ml Syr IV PUSH 0.5 mg Q2H PRN Administration Pain Rated 4-6 Hydromorphone HCl 1 mg 11/03/22 11:51 11/05/22 08:33 Hydromorphone Hcl Inj (*Crx) 1 Mg/Ml Syr IV PUSH 1 mg Q2H PRN Administration Pain Rated 7-10 Sodium Chloride 1,000 mls @ 100 mls/hr 11/02/22 17:45 11/05/22 03:28 Normal Saline Iv IV CONT 100 mls/hr .Q10H WYATT Administration Ibuprofen 800 mg in 200 mls @ 400 mls/hr 11/03/22 12:00 11/05/22 06:14 Caldolor 800 Mg/200 Ml IVPB Infused Q6HR WYATT Infusion Naloxone HCl 0.1 mg 11/03/22 11:51 Naloxone Hcl 0.4 Mg/Ml Vial IV PUSH Q2M PRN Opiate Reversal Ondansetron HCl 4 mg 11/02/22 17:45 11/03/22 14:28 Ondansetron Inj 4 Mg/2 Ml Vial IV PUSH 4 mg Q4H PRN Administration Nausea Pantoprazole Sodium 40 mg 11/04/22 09:00 11/05/22 08:33 Pantoprazole Sodium Iv 40 Mg Vial IV PUSH 40 mg QAM WYATT Administration Venlafaxine HCl 75 mg 11/04/22 09:00 11/05/22 08:34 Venlafaxine Hcl Xr 75 Mg Cap.Er.24h PO Not Given DAILY WYATT Radiology Results: ITS Impressions Abdomen/Pelvis CT 11/02/22 16:26 IMPRESSION: 1. Gallbladder distention with intrahepatic and extrahepatic biliary dilatation and apparent debris or stones in the common bile duct. Consider correlation with MRCP. MRCP 11/03/22 10:00 IMPRESSION: 1. Choledocholithiasis with intrahepatic and extrahepatic biliary duct dilatation. 2. Acute cholecystitis.
--- NOTE | 2022-11-05 11:42 | PM.IMPN ---
Progress Note: A&P Assessment and Plan (1) Choledocholithiasis: Code(s): K80.50 - Calculus of bile duct without cholangitis or cholecystitis without obstruction Status: Acute Assessment and Plan: MRCP confirms choledocholithiasis and intra and extrahepatic biliary dilatation. Continue with IV fluids. Continue with analgesics. Continue with antiemetics. GI and surgery have both been consulted. Plan for ERCP today. Patient will eventually need cholecystectomy. (2) Bipolar 1 disorder: Code(s): F31.9 - Bipolar disorder, unspecified Status: Chronic Assessment and Plan: Continue venlafaxine and BuSpirone Subjective Date/time seen: 11/05/22 11:42 Interval history: No new issues overnight Review of Systems Review of Systems: All systems reviewed & are unremarkable except as noted in HPI and below (HPI) Exam Const: General: cooperative, well developed, alert, awake, ill appearing and average body habitus Nutritional Appearance: average body habitus and well nourished Orientation/consciousness: oriented to person, oriented to place, oriented to time and patient oriented x3 Limitations: no limitations HENMT: Head: normal to inspection, No palpable skull fracture present, normocephalic and atraumatic Ears: hearing grossly normal bilaterally and external ears normal Face/Nose/Sinus: Normal external nose present and Normal nares present Eyes: General: appearance normal, both eyes and all related structures Alignment and Position: alignment normal Periorbital: periorbital findings normal Eyelids: eyelids normal Sclera: sclerae normal Pupils: Equal, round and reactive pupils present EOM: EOMs intact bilaterally Neck: Neck: normal visual inspection, full ROM, no lymphadenopathy, trachea midline and supple Chest: Chest palpation & inspection: normal inspection of the chest Resp: Effort & Inspection: normal respiratory effort Auscultation: clear to auscultation bilaterally Percussion: percussion normal Cardio: Palpation: normal PMI Rate: regular rate Rhythm: regular rhythm Heart sounds: S1 normal heart sound present and S2 normal heart sound present Peripheral pulses: Peripheral pulses 2+ throughout GI: Inspection: normal to inspection Auscultation: normal bowel sounds Rectal Exam: deferred Other: Epigastric tenderness to umbilical area Back/Spine/Pelvis: Cervical Spine: cervical ROM normal Skin: General skin exam: normal color Lesions: no lesions Rashes: no rashes Trauma: no lacerations or abrasions Wounds: no wounds Hair: normal Nails: normal Neuro: General: oriented to person, oriented to place, oriented to time and patient oriented x3 Cranial nerves: Yes Equal, round and reactive pupils present and Yes Normal hearing present Cognition (Neuro): normal cognition Speech: normal speech Gait exam (Neuro): Normal gait present Motor exam (neuro): 5/5 motor strength present throughout Sensory Exam: normal sensation Extrem: General: normal to inspection Right upper extremity: normal to inspection and shoulder/upper arm Left upper extremity: normal to inspection and shoulder/upper arm Right lower extremity: normal to inspection Left lower extremity: normal to inspection Psych: Appearance: grossly normal Mental Status: mental status grossly normal Speech and movement: Normal speech and movement present Affect: normal affect Attitude: cooperative Thought process: Normal thought process present Thought content: Yes Normal thought content present Insight: Good insight present (Psych) Judgement: Good judgement present (Psych) Objective Data Vital Signs Vital Signs: Vital Signs - 24 hr 11/04/22 14:43 11/04/22 20:00 11/04/22 21:23 Temperature 97.6 F 99.1 F Pulse Rate 63 88 Respiratory Rate 18 18 Blood Pressure 103/56 L 106/62 Pulse Oximetry 100 100 Oxygen Delivery Room Air 11/05/22 04:04 11/05/22 08:00 Temperature 98.2 F Pulse Rate 72 Resp
--- NOTE | 2022-11-05 12:20 | PC.NURSE ---
Patient off of unit to GI lab
[2022-11-05] MEDS: LACTATED RINGERS 1,000 ML 150 ML IV CONT (12:36)
--- NOTE | 2022-11-05 14:48 | SUR.PHASEII ---
pt provided with ice chips. denies pain. pt called spouse to update him.
[2022-11-05 16:58] LABS: Basophils Percent Auto 0.1 % (0.2-1.2); Eosinophils Percent Auto 0.1 % (0-4.4); Hematocrit 35.5 % (37.0-47.0); Hemoglobin 11.4 g/dL (12.0-15.0); Immature Granulocyte Absolute 0.05 K/mm3 (0.00-0.031); Immature Granulocyte Percent A 0.5 % (0-0.5); Lymphocytes Absolute Auto 0.63 K/mm3 (0.9-3.2); Lymphocytes Percent Auto 6.6 % (18.3-44.2); Mean Corpuscular HGB Conc 32.1 g/dl (32-36); Mean Corpuscular Hemoglobin 30.7 pg (26-34); Mean Corpuscular Volume 95.7 fl (80-100); Mean Platelet Volume 11.1 fl (7.4-10.4); Monocytes Absolute Auto 0.3 K/mm3 (0.1-0.6); Monocytes Percent Auto 3.4 % (2.6-8.5); Neutrophils Absolute Auto 8.5 K/mm3 (1.3-6.7); Neutrophils Percent Auto 89.3 % (45.5-73.1); Platelet Count Result 109 k/mm3 (150-375); Red Blood Count 3.71 M/mm3 (4.2-5.4); Red Cell Distribution Width 12.2 % (11.5-14.5); White Blood Count 9.6 K/mm3 (4.5-10.0)
[2022-11-05 17:12] LABS: Alanine Aminotransferase 135 U/L (6-35); Albumin Level 3.7 g/dL (3.5-5.1); Alkaline Phosphatase 181 U/L (38-126); Aspartate Amino Transferase 28 U/L (14-36); Bilirubin,Total 1.6 mg/dL (0.2-1.3)
[2022-11-06] MEDS: IBUPROFEN IV 800 MG/200 ML 800 MG/200 ML BAG 300 MG IVPB ×3 (00:03→12:05)
[2022-11-06] MEDS: HYDROmorphone HCL INJ (*CRX) 1 MG/ML SYR IV PUSH ×3 (00:04→06:25)
[2022-11-06] MEDS: SODIUM CHLORIDE 0.9% IV 1,000 ML 100 ML IV CONT (03:02)
[2022-11-06 04:34] VITALS: BP 108/69; PULSE 69; RESP 16; TEMP 36.6; O2SAT 98
[2022-11-06 06:15] LABS: Lipase 29 U/L (23-300)
--- NOTE | 2022-11-06 07:56 | WPDGIPROGNO ---
Progress Note: A&P Assessment and Plan (1) Choledocholithiasis with cholecystitis: Code(s): K80.40 - Calculus of bile duct with cholecystitis, unspecified, without obstruction Status: Acute Assessment and Plan: Patient had ERCP sphincterotomy and extraction of multiple fairly good size common bile duct gallstones yesterday. Doing well post procedure today. Plan to advance to low-fat diet. Surgical follow-up for anticipated cholecystectomy. (2) Cholelithiasis: Qualifiers: Biliary obstruction: with biliary obstruction Cholecystitis presence: without cholecystitis Cholelithiasis location: gallbladder and bile duct Qualified Code(s): K80.71 - Calculus of gallbladder and bile duct without cholecystitis with obstruction Code(s): K80.20 - Calculus of gallbladder without cholecystitis without obstruction Status: Acute Subjective Date/time seen: 11/06/22 07:56 Interval history: Patient alert comfortable today. Tolerated liquids with no problem. No significant pain after ERCP. She does have some residual mid epigastric pain has been present for some time. Multiple gallstones removed from the common bile duct at time of ERCP yesterday. Sphincterotomy was performed. Review of Systems Review of Systems: Review of systems noncontributory. Exam Narrative: Physical exam reveals patient be alert comfortable at rest. HEENT exam reveals no icterus. Lungs are clear. Heart without murmur. Abdomen bowel sounds present soft. Minimal discomfort in the upper abdomen on palpation. Objective Data Vital Signs Vital Signs: Vital Signs - 24 hr 11/05/22 08:00 11/05/22 12:25 11/05/22 14:24 Temperature 96.1 F L 98.8 F Pulse Rate 84 94 Respiratory Rate 18 20 Blood Pressure 119/67 101/58 L Pulse Oximetry 99 95 Oxygen Delivery Room Air Room Air Non-Rebreather Mask Oxygen Flow Rate 8 11/05/22 14:34 11/05/22 14:44 11/05/22 14:54 Temperature Pulse Rate 97 86 79 Respiratory Rate 23 H 21 H 16 Blood Pressure 103/59 L 117/76 112/68 Pulse Oximetry 96 95 93 Oxygen Delivery Non-Rebreather Mask Nasal Cannula Nasal Cannula Oxygen Flow Rate 8 4 4 11/05/22 15:04 11/05/22 15:14 11/05/22 15:24 Temperature Pulse Rate 79 81 79 Respiratory Rate 18 21 H 17 Blood Pressure 113/61 113/67 115/66 Pulse Oximetry 94 95 95 Oxygen Delivery Nasal Cannula Nasal Cannula Nasal Cannula Oxygen Flow Rate 2 2 2 11/05/22 16:53 11/05/22 20:00 11/05/22 20:00 Temperature 98.8 F 97.9 F Pulse Rate 97 69 Respiratory Rate 16 18 Blood Pressure 119/56 L 111/66 Pulse Oximetry 72 L 96 Oxygen Delivery Room Air Oxygen Flow Rate 11/06/22 04:34 Temperature 97.9 F Pulse Rate 69 Respiratory Rate 16 Blood Pressure 108/69 Pulse Oximetry 98 Oxygen Delivery Oxygen Flow Rate Intake/Output Intake/Output: Intake & Output 11/03/22 11/04/22 11/05/22 11/06/22 23:59 23:59 23:59 23:59 Intake Total 3720 3440 4320 1400 Balance 3720 3440 4320 1400 Meds/Results Medications: Active Medications Generic Name Dose Route Start Last Admin Trade Name Freq PRN Reason Stop Dose Admin Buspirone HCl 10 mg 11/03/22 11:56 Buspirone Hcl 10 Mg Tablet PO PRN PRN Anxiety Hydromorphone HCl 0.5 mg 11/03/22 11:51 11/03/22 19:53 Hydromorphone Hcl Inj (*Crx) 1 Mg/Ml Syr IV PUSH 0.5 mg Q2H PRN Administration Pain Rated 4-6 Hydromorphone HCl 1 mg 11/03/22 11:51 11/06/22 06:25 Hydromorphone Hcl Inj (*Crx) 1 Mg/Ml Syr IV PUSH 1 mg Q2H PRN Administration Pain Rated 7-10 Sodium Chloride 1,000 mls @ 100 mls/hr 11/02/22 17:45 11/06/22 03:02 Normal Saline Iv IV CONT 100 mls/hr .Q10H WYATT Administration Ibuprofen 800 mg in 200 mls @ 400 mls/hr 11/03/22 12:00 11/06/22 06:25 Caldolor 800 Mg/200 Ml IVPB 300 mls/hr Q6HR WYATT Administration Naloxone HCl 0.1 mg 11/03/22 11:51 Naloxone Hcl 0.4 Mg/Ml Vial IV PUSH Q2M PRN
[2022-11-06 08:18] LABS: Alanine Aminotransferase 112 U/L (6-35); Albumin Level 3.4 g/dL (3.5-5.1); Alkaline Phosphatase 161 U/L (38-126); Aspartate Amino Transferase 23 U/L (14-36); Bilirubin,Total 0.8 mg/dL (0.2-1.3)
[2022-11-06] MEDS: PANTOPRAZOLE SODIUM IV 40 MG VIAL IV PUSH (08:57)
[2022-11-06] MEDS: HYDROcodone/acetaminophen (*CRX) 7.5-325 MG TABLET 1 TAB PO (11:02)
--- NOTE | 2022-11-06 11:04 | PM.IMPN ---
Progress Note: A&P Assessment and Plan (1) Choledocholithiasis: Code(s): K80.50 - Calculus of bile duct without cholangitis or cholecystitis without obstruction Status: Acute Assessment and Plan: MRCP confirms choledocholithiasis and intra and extrahepatic biliary dilatation. Continue with IV fluids. Continue with analgesics. Continue with antiemetics. GI and surgery have both been consulted. Patient will need cholecystectomy. ERCP 11/05 with stone extraction performed Low fat diet (2) Bipolar 1 disorder: Code(s): F31.9 - Bipolar disorder, unspecified Status: Chronic Assessment and Plan: Continue venlafaxine and BuSpirone Plan DVT prophylaxis with SCDs GI prophylaxis not indicated Code status full code Subjective Date/time seen: 11/06/22 11:04 Interval history: No overnight events noted. No chest pain or shortness of breath. No nausea, vomiting or diarrhea. No fevers or chills. Review of Systems Review of Systems: 12 point review of systems was assessed and was negative except as noted in the HPI Exam Narrative: General: No acute distress, alert and oriented per baseline HEENT: Atraumatic, normocephalic, mucous membranes moist CV: Regular rate and rhythm, S1, S2 Lungs: Clear to auscultation bilaterally, no rales or crackles noted, no wheezes, good air entry Abdomen: Soft, nontender, nondistended Extremities: Normal to inspection Skin: No rashes noted, no lesions or wounds seen Psych: Euthymic, normal affect Objective Data Vital Signs Vital Signs: Vital Signs - 24 hr 11/05/22 12:25 11/05/22 14:24 11/05/22 14:34 Temperature 96.1 F L 98.8 F Pulse Rate 84 94 97 Respiratory Rate 18 20 23 H Blood Pressure 119/67 101/58 L 103/59 L Pulse Oximetry 99 95 96 Oxygen Delivery Room Air Non-Rebreather Mask Non-Rebreather Mask Oxygen Flow Rate 8 8 11/05/22 14:44 11/05/22 14:54 11/05/22 15:04 Temperature Pulse Rate 86 79 79 Respiratory Rate 21 H 16 18 Blood Pressure 117/76 112/68 113/61 Pulse Oximetry 95 93 94 Oxygen Delivery Nasal Cannula Nasal Cannula Nasal Cannula Oxygen Flow Rate 4 4 2 11/05/22 15:14 11/05/22 15:24 11/05/22 16:53 Temperature 98.8 F Pulse Rate 81 79 97 Respiratory Rate 21 H 17 16 Blood Pressure 113/67 115/66 119/56 L Pulse Oximetry 95 95 72 L Oxygen Delivery Nasal Cannula Nasal Cannula Oxygen Flow Rate 2 2 11/05/22 20:00 11/05/22 20:00 11/06/22 04:34 Temperature 97.9 F 97.9 F Pulse Rate 69 69 Respiratory Rate 18 16 Blood Pressure 111/66 108/69 Pulse Oximetry 96 98 Oxygen Delivery Room Air Oxygen Flow Rate 11/06/22 08:57 Temperature Pulse Rate Respiratory Rate Blood Pressure Pulse Oximetry Oxygen Delivery Room Air Oxygen Flow Rate Intake/Output Intake/Output: Intake & Output 11/03/22 11/04/22 11/05/22 11/06/22 23:59 23:59 23:59 23:59 Intake Total 3720 3440 4320 2540 Balance 3720 3440 4320 2540 Meds/Results Medications: Active Medications Generic Name Dose Route Start Last Admin Trade Name Freq PRN Reason Stop Dose Admin Acetaminophen 500 mg 11/06/22 09:57 Acetaminophen 500 Mg Tablet PO Q6H PRN Mild Pain (1-3) or Fever Hydrocodone Bitart/Acetaminophen 1 tab 11/06/22 09:57 Hydrocodone/Acetaminophen (*Crx) 5-325 Mg Tablet PO Q4H PRN Pain Rated 4-6 Hydrocodone Bitart/Acetaminophen 1 tab 11/06/22 09:57 11/06/22 11:02 Hydrocodone/Acetaminophen (*Crx) 7.5-325 Mg Tablet PO 1 tab Q4H PRN Administration Pain Rated 7-10 Buspirone HCl 10 mg 11/03/22 11:56 Buspirone Hcl 10 Mg Tablet PO PRN PRN Anxiety Hydromorphone HCl 0.5 mg 11/03/22 11:51 11/03/22 19:53 Hydromorphone Hcl Inj (*Crx) 1 Mg/Ml Syr IV PUSH 0.5 mg Q2H PRN Administration Pain Rated 4-6 Hydromorphone HCl 1 mg 11/03/22 11:51 11/06/22 06:25 Hydromorphone Hcl Inj (*Crx) 1 Mg/Ml Syr IV PUSH 1 mg Q2H PRN
[2022-11-06 14:54] VITALS: BP 97/60; PULSE 63; RESP 16; TEMP 36.5; O2SAT 99
--- NOTE | 2022-11-06 15:06 | PM.DS ---
DS: Admitting Diagnosis Discharge Date 11/06/22 Admitting Diagnosis abdominal pain DS: Discharge Diagnosis Discharge Diagnosis (1) Choledocholithiasis: Code(s): K80.50 - Calculus of bile duct without cholangitis or cholecystitis without obstruction Status: Acute Assessment and Plan: MRCP confirms choledocholithiasis and intra and extrahepatic biliary dilatation. Continue with IV fluids. Continue with analgesics. Continue with antiemetics. GI and surgery have both been consulted. Patient will need cholecystectomy. ERCP 11/05 with stone extraction performed Low fat diet (2) Bipolar 1 disorder: Code(s): F31.9 - Bipolar disorder, unspecified Status: Chronic Assessment and Plan: Continue venlafaxine and BuSpirone Plan DVT prophylaxis with SCDs GI prophylaxis not indicated Code status full code DS: Summary Hospital Course Hospital Course: 47-year-old female with intermittent epigastric pain found to have choledocholithiasis and cholecystitis. ERCP performed with stone extraction. Symptoms resolved. Cholecystectomy was recommended on an outpatient basis. All patient's symptoms improved and she requested to go home and schedule cholecystectomy outpatient. Please see above and med rec for details. Time Spent with Patient Time attestation: Total time spent providing and/or coordinating discharge services: Exam Narrative: General: No acute distress, alert and oriented per baseline HEENT: Atraumatic, normocephalic, mucous membranes moist CV: Regular rate and rhythm, S1, S2 Lungs: Clear to auscultation bilaterally, no rales or crackles noted, no wheezes, good air entry Abdomen: Soft, nontender, nondistended Extremities: Normal to inspection Skin: No rashes noted, no lesions or wounds seen Psych: Euthymic, normal affect DS: Data Data Completed and Pending Labs on day of discharge: Labs from last 24 hours 11/06/22 11/05/22 05:15 16:45 WBC 9.6 RBC 3.71 L Hgb 11.4 L Hct 35.5 L MCV 95.7 MCH 30.7 MCHC 32.1 RDW 12.2 Plt Count 109 L MPV 11.1 H Immature Gran % (Auto) 0.5 Neut % (Auto) 89.3 H Lymph % (Auto) 6.6 L [place] % (Auto) 3.4 Eos % (Auto) 0.1 Baso % (Auto) 0.1 L Lymph # (Auto) 0.63 L [place] # (Auto) 0.3 Eos # (Auto) 0.0 Baso # (Auto) 0.0 Abs Immat Gran (auto) 0.05 H Absolute Neuts (auto) 8.5 H Absolute Nucleated RBC 0.0 Nucleated RBC % 0.0 % Immature Plt Fraction 5.0 Total Bilirubin 0.8 1.6 H Direct Bilirubin 0.0 0.0 AST 23 28 ALT 112 H 135 H Alkaline Phosphatase 161 H 181 H Total Protein 6.0 L 7.0 Albumin 3.4 L 3.7 Lipase 29 Discharge Plan Discharge Attending physician on discharge: [place] Consulting providers: Td Sanz; Emmanuel Arriaza; Rashmi Burris; Yuriy Trammell; Neville Mendez; Orion Viera V. Discharging Clinician: [place] Patient Disposition: Home, Self-Care Activity: as tolerated Diet: low fat Patient Instructions: Antibiotic Form, How to Stop Smoking (DC) Stand Alone Forms: General Discharge Information Follow-up/Referrals: Td Sanz MD [Physician] - Francisco J,MD Eugenio [Primary Care Provider] - Discharge Medications: New amoxicillin-pot clavulanate 875-125 mg tablet 1 tablet PO Q12H Qty: 14 0RF Continued buspirone 10 mg tablet 10 mg PO PRN PRN (Reason: Anxiety) omeprazole 20 mg capsule,delayed release(DR/EC) 20 mg PO DAILY Qty: 14 0RF Rx Instructions: Take around supper time venlafaxine 75 mg capsule,extended release 24hr 75 mg PO DAILY Date of admission: 11/02/22 17:45 Primary Care Provider: Francisco JEugenio Admitting Provider: Anneliese Esteves Attending physician on admission: [place] Condition: Stable
--- NOTE | 2022-11-06 17:26 | PM.PNGS ---
Progress Note: A&P Assessment and Plan (1) Choledocholithiasis with cholecystitis: Code(s): K80.40 - Calculus of bile duct with cholecystitis, unspecified, without obstruction Status: Acute Assessment and Plan: Patient is still having some discomfort and tenderness in the right upper quadrant but is probably going to leave against medical advice if we do not discharge her tonight. I would prefer she stayed in the hospital with her tenderness and right upper quadrant pain but she is adamant about being discharged. She can go home on low-fat diet and take Advil or Tylenol p.r.n. for pain. Will give her a script for Augmentin to complete a one-week course. Will have my office staff arrange laparoscopic cholecystectomy to be done soon, probably next week. (2) Smoker: Code(s): F17.200 - Nicotine dependence, unspecified, uncomplicated Status: Chronic Subjective Subjective Date/Time Seen: 11/06/22 17:26 Patient reports: still having pain (Still having right upper quadrant abdominal pain but able to ambulate), tolerating a regular diet, afebrile and other (Desperately wants to go home tonight.) Interval history: Although taking hydrocodone p.r.n. for pain, patient would be okay to go home on either Tylenol or Advil and come back for gallbladder surgery. 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 Review of Systems Review of Systems: All systems reviewed & are unremarkable except as noted in HPI and below (HPI) Exam Const: General: comfortable and no acute distress Orientation/consciousness: patient oriented x3 GI: Inspection: non-distended GI Palp: Yes Soft to palpation, Yes Tenderness to palpation present (GI) (Right upper quadrant), No Guarding due to palpation present (GI) and No Rebound tenderness present Neuro: General: patient oriented x3 and no focal motor deficits Extrem: General: no calf tenderness and no edema Psych: Affect: normal affect Insight: Good insight present (Psych) Judgement: Good judgement present (Psych) Objective Data Vital Signs Vital Signs: Vital Signs - 24 hr 11/05/22 20:00 11/05/22 20:00 11/06/22 04:34 Temperature 36.6 C 36.6 C Pulse Rate 69 69 Respiratory Rate 18 16 Blood Pressure 111/66 108/69 Pulse Oximetry 96 98 Oxygen Delivery Room Air 11/06/22 08:57 11/06/22 14:54 Temperature 36.5 C Pulse Rate 63 Respiratory Rate 16 Blood Pressure 97/60 L Pulse Oximetry 99 Oxygen Delivery Room Air Intake/Output Intake/Output: Intake & Output 11/03/22 11/04/22 11/05/22 11/06/22 23:59 23:59 23:59 23:59 Intake Total 3720 3440 4320 2780 Balance 3720 3440 4320 2780 Meds/Results Medications: Active Medications Generic Name Dose Route Start Last Admin Trade Name Freq PRN Reason Stop Dose Admin Acetaminophen 500 mg 11/06/22 09:57 Acetaminophen 500 Mg Tablet PO Q6H PRN Mild Pain (1-3) or Fever Hydrocodone Bitart/Acetaminophen 1 tab 11/06/22 09:57 Hydrocodone/Acetaminophen (*Crx) 5-325 Mg Tablet PO Q4H PRN Pain Rated 4-6 Hydrocodone Bitart/Acetaminophen 1 tab 11/06/22 09:57 11/06/22 11:02 Hydrocodone/Acetaminophen (*Crx) 7.5-325 Mg Tablet PO 1 tab Q4H PRN Administration Pain Rated 7-10 Buspirone HCl 10 mg 11/03/22 11:56 Buspirone Hcl 10 Mg Tablet PO PRN PRN Anxiety Hydromorphone HCl 0.5 mg 11/03/22 11:51 11/03/22 19:53 Hydromorphone Hcl Inj (*Crx) 1 Mg/Ml Syr IV PUSH 0.5 mg Q2H PRN Administration Pain Rated 4-6 Hydromorphone HCl 1 mg 11/03/22 11:51 11/06/22 06:25 Hydromorphone Hcl Inj (*Crx) 1 Mg/Ml Syr IV PUSH 1 mg Q2H PRN Administration Pain Rated 7-10 Ibuprofen 800 mg in 200 mls @ 400 mls/hr 11/03/22 12:00 11/06/22 12:05 Caldolor 800 Mg/200 Ml IVPB 300 mls/hr Q6HR WYATT Administration Piperacillin/Tazobactam/Dextrose 3.375 gm in 50 mls @ 100 mls/hr 11/06/22 15:55 Zosyn 3.375 Gm/Ns 50 Ml IVPB Q6HR WYATT Naloxone HCl 0.1 mg
== END 2022-11-06 17:38 | disposition home or self-care (01) ==
LOC: ANHED 17:28 → ANH3MED 18:40
PROVIDERS: Internal Medicine Gastroenterology; Nurse Practitioner; Surgery; Admitting Provider Hospitalist; Emergency Provider Emergency Medicine; PCP Family Medicine; Visit Provider Student in an Organized Health Care Education/Training Program
PROC: 0FC98ZZ Extirpation of Matter from Common Bile Duct, Via Natural or Artificial Opening Endoscopic (ICD-10-PCS; CPT 43260; principal; 2022-11-05 13:30)
DX: K80.42 Calculus of bile duct with acute cholecystitis without obstruction (principal); F31.9 Bipolar disorder, unspecified; F17.210 Nicotine dependence, cigarettes, uncomplicated; Z86.16 Personal history of COVID-19
CPT/HCPCS: 36415; 74177; 74183; 74329; 76376; 80053; 80074; 80076; 81003; 81025; 83605; 83690; 83735; 84443; 85025; 85027; 85055; 96374; 96375; 99285; A9270; A9577; C9113; J0330; J1100; J1170; J1741; J1885; J2405; J2704; J2765; J3010; J7030; J7120; Q9966; Q9967

== ENCOUNTER 2024-02-25 13:28 | Outpatient (CLI) | payer OTHER, SELFPAY ==
--- NOTE | ~2024-02-25 | CT_ITS ---
EXAMINATION: CT sinus wo con DATE: 02/25/2024 13:50 INDICATION: Sialoadenitis. TECHNIQUE: Computed tomography (CT) of the paranasal sinuses was performed without intravenous contra st. Iterative reconstruction technique was employed. The dose-length product was 311.14 mGy-cm. COMPARISON: None FINDINGS: The frontal sinuses are clear. There is mild mucosal thickening in the bilateral ethmoid si nuses. The sphenoid sinuses are clear. There is mild mucosal thickening in the bilateral maxillary si nuses. There is chris bullosa involving right middle turbinate. The ostiomeatal units are patent. Th e nasal septum is at the midline. The visualized portions of the parotid glands are normal. IMPRESSION: 1. Mild mucosal thickening in the paranasal sinuses. Reviewed, dictated and finalized at location A. 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
== END 2024-02-25 13:29 | disposition home or self-care (01) ==
PROVIDERS: PCP Family Medicine; Visit Provider Nurse Practitioner Family
DX: K11.20 Sialoadenitis, unspecified (principal)
CPT/HCPCS: 70486

== ENCOUNTER 2024-11-01 09:34 | Emergency (ER) | payer OTHER, SELFPAY ==
--- NOTE | ~2024-11-01 | CT_ITS ---
EXAMINATION: CT abdomen pelvis w con DATE: 11/01/2024 11:31 INDICATION: Left sided abdominal pain TECHNIQUE: Computed tomography (CT) of the abdomen and pelvis was performed without intravenous contr ast. The dose-length product was 594.84 mGy-cm. COMPARISON: 11/02/2022 FINDINGS: Small opacities in the lower lungs. Liver, spleen, kidneys, adrenal glands, pancreas unremarkable. Gallbladder is absent. Abdominal aorta is not aneurysmal. No enlarged lymph nodes in the abdomen and pelvis. Bladder is unremarkable. There is a 2.1 cm anechoic structure in the left adnexa possibly an ovarian lesion. Consider a pelvic ultrasound. Appendix is unremarkable. Thickening of the hermosillo of the ascending colon and transverse colon. Differ ential includes incomplete bowel wall distention versus colitis. IMPRESSION: 1. There is a 2.1 cm anechoic structure in the left adnexa possibly an ovarian lesion. Consider a pel nikhil ultrasound. 2. Thickening of the hermosillo of the ascending colon and transverse colon. Differential includes incompl ete bowel wall distention versus colitis. Reviewed, dictated and finalized at location A. IMPRESSION: 1. There is a 2.1 cm anechoic structure in the left adnexa possibly an ovarian lesion. Consider a pelvic ultrasound. 2. Thickening of the hermosilol of the ascending colon and transverse colon. Differe ntial includes incomplete bowel wall distention versus colitis.
--- NOTE | ~2024-11-01 | US_ITS ---
EXAM: US pelvic complete w TV - 11/01/2024 12:08 CDT History: 49 years old Female with possible ovarian cyst Comparison: None available. Technique Real time scanning of the pelvis was performed. Findings The uterus measures 7.7 x 4.1 x 5.0 cm. No focal myometrial abnormality is seen. Endometrium is carin sly unremarkable. The endometrial stripe measures 4 mm. The right ovary measures 1.9 x 1.2 x 1.6 cm. The left ovary measures 3.2 x 2.3 x 2.5 cm. Both ovaries have intact blood flow. 2.8 x 1.8 x 1.6 cm left ovarian cyst. There is no significant fluid in the cul-de-sac. Multiple nabothian cysts are seen in the cervix. Impression: 2.8 cm left ovarian cyst. Reviewed, dictated and finalized at location A. Impression: 2.8 cm left ovarian cyst.
[2024-11-01 09:44] VITALS: BP 135/90; PULSE 88; RESP 16; TEMP 36.8; O2SAT 99
--- NOTE | 2024-11-01 09:49 | ED_ITS ---
HPI - Abdominal Pain General Chief Complaint: Abdominal Pain Stated Complaint: abd pain Time Seen by Provider: 11/01/24 09:38 Source: patient Mode of arrival: ambulatory Limitations: no limitations History of Present Illness HPI narrative: This is a 49 year old female that presents to the ER for abdominal pain. Ongoing intermittently over the last several months. Reports left sided abdominal pain. Reports she had a couple of dark stools 3 days ago. Also reports she has felt bloated and had some swelling in her lower extremities by the end of the day. Reports loose stools. Denies fevers, vomiting. Related Data Home Medications ?Medication ?Instructions ?Recorded ?Confirmed ?Last Taken ?Type buspirone 10 mg tablet 10 mg PO PRN PRN Anxiety 08/30/22 11/02/22 Unknown History venlafaxine 75 mg capsule,extended 75 mg PO DAILY 11/02/22 11/02/22 Unknown History release 24 hr Allergies Allergy/AdvReac Type Severity Reaction Status Date / Time erythromycin base Allergy Mild Nausea and Verified 11/05/22 12:34 Vomiting Review of Systems 2 Review of Systems: All systems reviewed & are unremarkable except as noted in HPI and below PMFSH Past Medical History Medical History (Updated 11/01/24 @ 14:01 by Alina Mckenzie PA-C) Degenerative disc disease Ankle fracture Clavicle fracture Bronchitis COVID-19 Bipolar 1 disorder Surgical History Surgical History (Updated 11/01/24 @ 09:49 by Alina Mckenzie PA-C) Hx of cholecystectomy H/O tubal ligation History of tonsillectomy Family History Family History Father Alcoholism Diabetes mellitus Hypertension Depression Heart disease Mother Cancer Depression Other Asthma Depression Grandparent Alcoholism Cancer Diabetes mellitus Hypertension Heart disease Depression Grandparent Depression Other No active medical problems Social History Social History Social History: She currently works at [employer] and smokes about half pack a cigarettes a day. She has 3 children. Her is a durable power litigation attorney for healthcare. Code status full code Smoking packs per day: 0.5 Smoking cigarettes per day: 10.0 Years smoked: 25 Smoking pack-years: 12.50 Smoking status: Current every day smoker Tobacco type: cigarettes Alcohol intake: never Substance use: never Substance use type: does not use Lack of Transportation: No Lack of Food: Never True Current Housing: I Have Housing Concerned About Future Housing: No Difficulty Paying Gas/Electric Bills: No Difficulty Paying for Meds: No Currently Unemployed: No Education: High School Diploma/GED Difficulty w/ Childcare or Family Care: No Spiritual care concerns: No Exam 2 Narrative: GENERAL: Well-appearing, well-nourished, and in no acute distress. HEAD: Normocephalic, atraumatic. EYES: EOMI. ENT: Nares clear, no rhinorrhea or epistaxis. Mucous membranes moist. CHEST: Clear to auscultation. No respiratory distress. No wheezes rales or rhonchi HEART: Regular rate and rhythm. No murmur heard. Normal peripheral pulses. ABDOMEN: Soft, nondistended, normal active bowel sounds. Tender to palpation throughout the left side of the abdomen, without guarding EXTREMITIES: Normal range of motion. No edema. SKIN: Warm, dry, no rash. NEURO: No focal deficits. Alert and oriented x3. PSYCH: Normal mood and affect Course Course Emergency Course: patient updated on her workup and agrees with plan of care Vital Signs Vital signs: Vital Signs Temperature 98.2 F 11/01/24 09:44 Pulse Rate 88 11/01/24 09:44 Respiratory Rate 16 11/01/24 09:44 Blood Pressure 135/90 11/01/24 09:44 Pulse Oximetry 99 11/01/24 09:44 Temperature 98.2 F 11/01/24 09:44 Pulse Rate 88 11/01/24 09:44 Respiratory Rate 16 11/01/24 09:44 Blood Pressure 135/90 11/01/24 09:44 Pulse Oximetry 99 11/01/24 09:44 MDM - Abdominal Pain MDM Narrative Medical decision making narrative: Patient presents the emergency department for left-sided abdominal abdominal pain. Endorsing some dark stools a couple days prior to arrival. Patient is afebrile and nontoxic appearing. Cbc without leukocytosis. Hemoglobin is normal. Metabolic panel without concerning findings. Urine with 6-10 white blood cells, patient does not endorse any current urinary symptoms. CT abdomen and pelvis shows colitis. Abnormality of the left ovary. Pelvic ultrasound shows a 2.8 cm left ovarian cyst. Patient updated on her workup and agrees with plan of care. She is to follow up with primary provider. She was given warnings to return to the ER Differential Diagnosis Differential diagnosis: Likely calculus of kidney, diverticulitis and other (colitis, ovarian cyst) Lab Data Attestation: I reviewed the patient's lab results. 11/01/24 10:33 11/01/24 10:33 Labs: Lab Results 11/01/24 Range/Units 10:33 WBC 9.3 (4.5-10.0) K/mm3 RBC 4.82 (4.2-5.4) M/mm3 Hgb 14.3 (12.0-15.0) g/dL Hct 43.1 (37.0-47.0) % MCV 89.4 (80-100) fl MCH 29.7 (26-34) pg MCHC 33.2 (32-36) g/dl RDW 12.2 (11.5-14.5) % Plt Count 202 D (150-375) k/mm3 MPV 11.2 H (7.4-10.4) fl Immature Gran % (Auto) 0.4 (0-0.5) % Neut % (Auto) 62.5 (45.5-73.1) % Lymph % (Auto) 32.1 (18.3-44.2) % [place] % (Auto) 3.5 (2.6-8.5) % Eos % (Auto) 1.1 (0-4.4) % Baso % (Auto) 0.4 (0.2-1.2) % Lymph # (Auto) 2.97 (0.9-3.2) K/mm3 [place] # (Auto) 0.3 (0.1-0.6) K/mm3 Eos # (Auto) 0.1 (0-0.3) K/mm3 Baso # (Auto) 0.0 (0.0-0.1) K/mm3 Abs Immat Gran (auto) 0.04 H (0.00-0.031) K/mm3 Absolute Neuts (auto) 5.8 (1.3-6.7) K/mm3 Absolute Nucleated RBC 0.000 (0.0-0.012) K/mm3 Nucleated RBC % 0.0 (0.0-0.2) % PT 13.5 (11.1-14.7) Seconds INR 1.0 APTT 25.1 (22.3-36.8) Seconds Sodium 139 (137-145) mmol/L Potassium 4.0 (3.4-5.0) mmol/L Chloride 107 (98-107) mmol/L Carbon Dioxide 23 (22-30) mmol/L Anion Gap 9 (4-12) mmol/L BUN 11 (7-17) mg/dL Creatinine 0.98 (0.7-1.0) mg/dL Estim Creat Clear Calc 73 ml/min Estimated GFR > 60 (59 - ) Glucose 91 (65-110) mg/dL Calcium 9.3 (8.4-10.2) mg/dL Total Bilirubin 0.4 (0.2-1.3) mg/dL AST 23 (14-36) U/L ALT 19 (6-35) U/L Alkaline Phosphatase 61 (38-126) U/L NT-Pro-B Natriuret Pep 242 H (19.9-100) pg/mL Total Protein 7.3 (6.3-8.2) g/dL Albumin 4.3 (3.5-5.1) g/dL Lipase 62 (23-300) U/L Urine Color Yellow (Yellow) Urine Appearance Clear (Clear) Urine pH 6.0 (5.0-9.0) Ur Specific [place] 1.009 (1.001-1.035) Urine Protein Negative (Negative) mg/dL Urine Glucose (UA) Negative (Negative) mg/dL Urine Ketones Negative (Negative) mg/dL Ur Blood (Man) Negative (Negative) Urine Nitrate Negative (Negative) Urine Bilirubin Negative (Negative) Urine Urobilinogen 0.2 (<2.0) mg/dL Leukocyte Esterase Rfl 2+ H (Negative) HUY/UL Urine RBC 0-2 (0-2) /hpf Urine WBC 6-10 H (0-3) /hpf Ur Squamous Epith Cells Few (Few) /hpf Urine Bacteria Rare /hpf Urine Casts 0-2 Imaging Data Radiologist's impression: ITS Impressions Abdomen/Pelvis CT 11/01/24 11:34 IMPRESSION: 1. There is a 2.1 cm anechoic structure in the left adnexa possibly an ovarian lesion. Consider a pelvic ultrasound. 2. Thickening of the hermosillo of the ascending colon and transverse colon. Differential includes incomplete bowel wall distention versus colitis. Pelvic/Transvag US 11/01/24 12:44 Impression: 2.8 cm left ovarian cyst. Critical Care Time Critical Care Time Critical Care Time: No Discharge Plan Discharge Clinical Impression: Colitis Ovarian cyst Qualifiers: Laterality: left Qualified Code(s): N83.202 - Unspecified ovarian cyst, left side Patient Disposition: Home Condition: Stable Instructions: Antibiotic Form, Ovarian Cyst (ED), Colitis (ED) Additional Instructions: Return to the ER if you experience fever, abdominal pain with nausea and vomiting, you are unable to keep down liquids or solids, or any other symptoms that are concerning to you Remain well hydrated. Take oral antibiotics as prescribed Follow up with your primary care doctor Patient Language: Indonesian Prescriptions: New ciprofloxacin HCl [Cipro] 500 mg tablet 500 mg PO Q12H 5 Days Qty: 10 0RF metronidazole 500 mg tablet 500 mg PO Q12H 5 Days Qty: 10 0RF No Action buspirone 10 mg tablet 10 mg PO PRN PRN (Reason: Anxiety) omeprazole 20 mg capsule,delayed release(DR/EC) 20 mg PO DAILY Qty: 14 0RF Rx Instructions: Take around supper time venlafaxine 75 mg capsule,extended release 24hr 75 mg PO DAILY amoxicillin-pot clavulanate 875-125 mg tablet 1 tablet PO Q12H Qty: 14 0RF Follow-up/Referrals: Francisco J,MD Eugenio [Primary Care Provider] - Pablito Jones MD [Physician] -
--- OUTSIDE RECORDS SUMMARY | 2024-11-01 10:16 | XMS_ITS | Clinical Summary ---
Author Organization [facility] Address [address] [place] [address] Care Team Providers Care Personnel Administrator Name Role Phone Unavailable Primary Care Provider Unavailabl e Source Comments [facility],non-owned Affiliates and Associated Physician Practices is amultiple site organization consisting of ambulatory clinics and hospital sitesin [place], [place], [place] and [place]. This disclosure is being madepursuant to the Care Everywhere program and may not contain all information available regarding this patient. 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 Gender Identity Not on file Sexual Orientation Not on file Plan of Treatment Health Maintenance Due Date Last Done Comments COLOGUARD (AGES 45-75) - COL ON CA SCREENING 1977 COLON MONITORING 1977 COLONOSCOPY - COLON CA SCREENING 1977 CT COLONOGRAPHY - COLON CA SCREENING 1977 Colorectal Cancer Screening 1977 FIT - COLON CA SCREENING 1977 FLEX SIG - COLON CA SCREENING 1977 LIPID TESTING 1977 MAMMOGRAM 1977 HIV SCREENING 1992 HEPATITIS C SCREENING 05/18/1995 DTAP/TDAP/TD VACCINES (1 - Tdap) 1996 HEPATITIS B VACCINE (1 of 3 - 19+ 3-dose series) 1996 PAP SMEAR 1998 COVID-19 VACCINE ( - 2023-2 5 season) 2023 DEPRESSION SCREENING 03/17/2024 INFLUENZA VACCINE (#1) 2024 ZOSTER VACCINE (1 of 2) 05/23/2027 HIB VACCINE Aged Out No longer eligi ble based on patient's age to complete this topic HPV VACCINE Aged Out No longer eligi ble based on patient's age to complete this topic MENINGOCOCCAL (Group B) VACC INE SHARED DECISION-MAKING Aged Out No longer eligibl e based on patient's age to complete this topic MENINGOCOCCAL GROUPS A/C/Y/W VACCINE Aged Out No longer eligible b ased on patient's age to complete this topic PNEUMOCOCCAL VACCINE Aged Out No long er eligible based on patient's age to complete this topic Insurance [facility] MEDICAID
[2024-11-01 10:46] LABS: Add Urine Microscopic? YES; Appearance Urine Clear (Clear); Glucose Urine UA Negative (Negative); Leukocyte Esterase Ur 2+ LEU/UL (Negative); Nitrate Urine Negative (Negative); Non Pathogenic Casts 0-2; Specific Grav Ur 1.009 (1.001-1.035)
[2024-11-01 10:49] LABS: Hematocrit 43.1 % (37.0-47.0); Hemoglobin 14.3 g/dL (12.0-15.0); Immature Granulocyte Percent A 0.4 % (0-0.5); Lymphocytes Absolute Auto 2.97 K/mm3 (0.9-3.2); Mean Corpuscular HGB Conc 33.2 g/dl (32-36); Mean Corpuscular Hemoglobin 29.7 pg (26-34); Mean Corpuscular Volume 89.4 fl (80-100); Nucleated Red Blood Cells Absolute Auto 0.000 K/mm3 (0.0-0.012); Nucleated Red Blood Cells Perc 0.0 % (0.0-0.2); Platelet Count Result 202 k/mm3 (150-375); Red Blood Count 4.82 M/mm3 (4.2-5.4); White Blood Count 9.3 K/mm3 (4.5-10.0)
[2024-11-01 11:04] LABS: INR 1.0; Prothrombin Time 13.5 Seconds (11.1-14.7)
[2024-11-01 11:05] LABS: Partial Thromboplastin Time 25.1 Seconds (22.3-36.8)
[2024-11-01 11:09] LABS: Alanine Aminotransferase 19 U/L (6-35); Albumin Level 4.3 g/dL (3.5-5.1); Alkaline Phosphatase 61 U/L (38-126); Anion Gap 9 mmol/L (4-12); Aspartate Amino Transferase 23 U/L (14-36); Bilirubin,Total 0.4 mg/dL (0.2-1.3); Blood Urea Nitrogen 11 mg/dL (7-17); Calcium 9.3 mg/dL (8.4-10.2); Carbon Dioxide 23 mmol/L (22-30); Chloride 107 mmol/L (98-107); Estimated CRCL calculation 73 ml/min; Estimated Glomerular Filt Rate > 60; Glucose 91 mg/dL (65-110); Lipase 62 U/L (23-300); Potassium 4.0 mmol/L (3.4-5.0); Sodium 139 mmol/L (137-145); Total Protein 7.3 g/dL (6.3-8.2)
--- OUTSIDE RECORDS SUMMARY | 2024-11-01 11:14 | XMS_ITS | Clinical Summary ---
Author Organization [facility] [employer] Address [address] [place] [address] Care Team Providers Care Breastfeeding Educator Name Role Phone Unavailable Primary Care Provider Unavailabl e Source Comments [facility],non-owned Affiliates and Associated Physician Practices is amultiple site organization consisting of ambulatory clinics and hospital sitesin [place], [place], [place] and [place]. This disclosure is being madepursuant to the Care Everywhere program and may not contain all information available regarding this patient. 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
[2024-11-01 11:23] LABS: NT Pro B Type Natriuretic Pept 242 pg/mL (19.9-100)
[2024-11-01 14:20] VITALS: BP 140/72; PULSE 88; RESP 20; O2SAT 95
== END 2024-11-01 14:26 | disposition home or self-care (01) ==
PROVIDERS: Emergency Provider Physician Assistant; PCP Family Medicine
DX: K52.9 Noninfective gastroenteritis and colitis, unspecified (principal); N83.202 Unspecified ovarian cyst, left side; F17.210 Nicotine dependence, cigarettes, uncomplicated; Z86.16 Personal history of COVID-19; Z90.49 Acquired absence of other specified parts of digestive tract
CPT/HCPCS: 36415; 74177; 76830; 76856; 80053; 81001; 83690; 83880; 85025; 85610; 85730; 87086; 99284; Q9967